=== PATIENT | female | born 1940 | race Caucasian/White ===

== ENCOUNTER → 2017-09-07 14:54 | Outpatient (CLI) | payer MEDICARE, OTHER, SELFPAY ==
--- NOTE | 2017-09-07 15:04 | XR_ITS ---
XR chest 2V HISTORY: Cough with shortness of breath ITS.REASON: BRONCHITIS ORDERING PHYSICIAN: Radha Billings PATIENT AGE: 77 years COMPARISON: 05/31/2016 FINDINGS: Unremarkable cardiovascular structures. Calcified nodes are present in the right hilum. There is mild blunting of the CP angle on the right. Minimal atelectatic changes are present in the left lung base. There is a nodular opacity overlying the left lower lobe likely related to nipple shadow. Other areas of costochondral markings noted. No acute bony anomalies. IMPRESSION: 1. Small right pleural effusion. 2. Mild atelectatic changes left lung base
== END ==
PROVIDERS: PCP Nurse Practitioner Family; Visit Provider Nurse Practitioner Family
DX: J40 Bronchitis, not specified as acute or chronic (principal)
CPT/HCPCS: 71046

== ENCOUNTER → 2019-04-18 09:09 | Outpatient (CLI) | payer MEDICARE, SELFPAY ==
--- NOTE | 2019-04-18 09:14 | MM_ITS ---
PROCEDURE: MM DIG SCREENING MAMM BI W/CAD Patient Age:79Y CLINICAL INDICATION: SCREENING 79-year-old. Previous right mastectomy as well as previous benign lumpectomy on left breast. No new complaints, no hormones T family history but paternal cousin breast cancer in her 80s COMPARISON: DIGMAMMS MAMMOGRAM SCREEN-ROUND KILN DRAWER N/C from 02/05/2010 DMSB DIG MAMM-SCREEN SPIKE from 03/05/2013 DMSUL DIG MAMM-SCREENING UNI-LT from 03/21/2014 DMSUL DIG MAMM-SCREENING UNI-LT from 04/14/2015 DMSUL DIG MAMM-SCREENING UNI-LT from 05/31/2016 TECHNIQUE: Standard CC and MLO images were obtained. R2 CAD reviewed. FINDINGS: Left mammogram: Moderately density residual breast tissue throughout central breast. Slight inhomogeneous character of this breast tissue in some regions. . However no discrete new findings of significant concern Standard CC view appears stable. No new findings Slightly more evident breast density features towards on the MLO view inferior left breast appears similar to studies dating back to 2012 Also again note small benign-appearing groupings calcifications with no significant change; these could be followed IMPRESSION: No new areas of significant concern. Overall stable mammogram Moderate heterogeneous breast density. . Appearance is similar with no significant appearing change when compared back to 2012 .However would recommend and encourage the left mammogram follow-up in 1 year. BI-RAD Category: 2 Benign Finding(s) FOLLOW-UP: 1YR 1 Year Follow-up (A letter has been sent to the patient regarding results of the study.) Dictated by: Eriberto Riggs MD 04/23/2019 15:06 Electronically signed by Eriberto Riggs MD in [place] 04/23/2019 15:06
== END ==
PROVIDERS: PCP Nurse Practitioner Family; Visit Provider Nurse Practitioner Family
DX: Z12.31 Encounter for screening mammogram for malignant neoplasm of breast (principal)
CPT/HCPCS: 77067

== ENCOUNTER → 2020-04-18 12:47 | Outpatient (CLI) | payer MEDICARE, SELFPAY ==
--- NOTE | 2020-04-18 12:54 | CA_ITS ---
APPROVED REPORT EXAM: Comprehensive 2D, Doppler, and color-flow Echocardiogram Insurance Claim Approver: Dot Olmos, RT(R) Ht: 5 ft 1 in Wt: 127lbs BSA: 1.56 BP: 144/93 mmHg Indications: MVR, known PFO,hx of breast cancer Echo Enhancing Agent Indication: Rule Out Septal Defect Agent(s) / Amount(s) Used: Agitated Saline cc 2D Dimensions LVOT 1.82 cm (M/F) 1.5-2.5 M-Mode Dimensions RVDd 2.28 cm (0.9-2.6) LVDd 3.91 cm (3.5-5.7) LVDs 2.66 cm (3.5-5.7) IVSd 0.69 cm (0.6-1.1) PWd 0.84 cm (0.6-1.1) EF (Teich) 60.80% FS 32.00% EDV (Teich) 66.30 mL ESV (Teich) 26.00 mL LV Diastology E/A Ratio 0.88 Mitral Valve MV A Velocity 80.00 (40-130 cm/s) Left Ventricle Left atrium is mildly enlarged, left ventricle is normal size, mild concentric left ventricular hypertrophy, visually estimated ejection fraction 55% with no regional wall motion abnormality, grade 1 diastolic dysfunction seen without tissue Doppler evidence of raise left atrial pressure. Right Ventricle Right atrium and right ventricle are normal size and contractility. Atria There is bulging of the interatrial septum towards the right atrium raising the concerns for presence of increased left atrial pressure, agitated saline contrast study fails to identify intracardiac shunt. Mitral Valve Mitral valve leaflets are minimally thickened, there is mild mitral regurgitation. Tricuspid Valve Tricuspid valve is grossly normal, there is mild tricuspid regurgitation, calculated right ventricular systolic pressure 39 mmHg, inferior vena cava is mildly dilated without significant inspiratory collapse. Pulmonic Valve Pulmonic valve is poorly visualized. Great Vessels Aortic root is normal size. Pericardium No significant pericardial effusion noted. Conclusion 1. Mildly enlarged left atrium, normal left ventricular size, mild concentric left ventricular hypertrophy, visually estimated ejection fraction 55% with no regional wall motion abnormality, grade 1 diastolic dysfunction seen without tissue Doppler evidence of raise left atrial pressure. 2. Mild mitral and tricuspid regurgitation, calculated right ventricular systolic pressure 39 mmHg. 3. There is bulging of the interatrial septum towards the right atrium raising the concerns for presence of raised left atrial pressure, agitated saline contrast reveals 25 intracardiac shunt. 4. No significant pericardial effusion noted. Electronically signed by : Flavio Branch, 04/21/2020 19:59:26
== END ==
PROVIDERS: PCP Nurse Practitioner Family; Visit Provider Internal Medicine Cardiovascular Disease
DX: I34.0 Nonrheumatic mitral (valve) insufficiency (principal)
CPT/HCPCS: 93306

== ENCOUNTER → 2020-05-02 10:16 | Outpatient (CLI) | payer MEDICARE, SELFPAY ==
--- NOTE | 2020-05-02 10:19 | MM_ITS ---
PROCEDURE: MM DIG SCREENING MAMM BI W/CAD Referring Doctor: Radha Billings Patient Age:80Y CLINICAL INDICATION: SCREENING right mastectomy with benign left lumpectomy per patient history sheet. No new complaints. No hormones. Family history: Paternal cousin with breast cancer in her 80s COMPARISON: MG DMSB DIG MAMM-SCREEN SPIKE from 03/05/2013 MG DMSUL DIG MAMM-SCREENING UNI-LT from 03/21/2014 MG DMSUL DIG MAMM-SCREENING UNI-LT from 04/14/2015 MG DMSUL DIG MAMM-SCREENING UNI-LT from 05/31/2016 MG MM DIG SCREENING MAMM BI W/CAD from 04/18/2019 TECHNIQUE: Standard CC and MLO images were obtained. R2 CAD reviewed. Bilateral digital breast tomosynthesis included. Additional axillary CC view left breast FINDINGS: Right breast is been surgically removed The only a left mammogram performed today. The small remaining left breast shows no new dominant or new suspicious mass. But minimal area of density at the inferior retroareolar region has remained stable since studies dating back to at least 1999 15 and even seen on 2013 exam.. Mole markers medial and lateral left breast again observed; also suggestion subtle mild distortion from previous biopsy left breast. Follow-up left mammogram 1 year recommended IMPRESSION: Stable left breast follow-up 1 year recommended BI-RAD Category: 2 Benign Finding(s) FOLLOW-UP: 1YR 1 Year Follow-up (A letter has been sent to the patient regarding results of the study.) Dictated by: Eriberto Riggs MD 05/02/2020 22:21 Eriberto Riggs MD in [place] 05/02/2020 22:21
== END ==
PROVIDERS: PCP Nurse Practitioner Family; Visit Provider Nurse Practitioner Family
DX: Z12.31 Encounter for screening mammogram for malignant neoplasm of breast (principal)
CPT/HCPCS: 77063; 77067

== ENCOUNTER → 2021-05-05 09:46 | Outpatient (CLI) | payer MEDICARE, SELFPAY ==
--- NOTE | 2021-05-05 09:50 | MM_ITS ---
PROCEDURE: MM DIG SC MAMM UNILAT LT CAD Digital Breast Tomosynthesis Included CLINICAL INDICATION: SCREENING, h/o rt breast cancer COMPARISON: MG DIGMAMMDX MAMMOGRAM DX-EXTENSION SPECIALIST N/C from 11/17/2006 MG DIGMAMMS MAMMOGRAM SCREEN-EXTENSION SPECIALIST N/C from 02/05/2010 MG DMSUL DIG MAMM-SCREENING UNI-LT from 03/21/2014 MG DMSUL DIG MAMM-SCREENING UNI-LT from 04/14/2015 MG DMSUL DIG MAMM-SCREENING UNI-LT from 05/31/2016 MG MM DIG SCREENING MAMM BI W/CAD from 04/18/2019 MG MM DIG SCREENING MAMM BI W/CAD from 05/02/2020 TECHNIQUE: Standard CC and MLO images and 3D Tomosynthesis was obtained. R2 CAD reviewed. FINDINGS: Status post right mastectomy. There are scattered areas of fibroglandular density The left nipple somewhat inverted. There is asymmetric density in the inferior aspect of the left breast which is somewhat more prominent compared to the previous exams possibly related overlying fibroglandular tissue. Spot compression view and left breast ultrasound suggested as well as straight mL view. No malignant appearing mass or malignant-appearing microcalcification. Benign-appearing calcifications are present. IMPRESSION: Nodular density inferior left breast. Additional images and left breast ultrasound suggested. BI-RAD Category: 0 Need Additional Imaging Evaluation FOLLOW-UP: IMM Immediate Follow-up Recommended (A letter has been sent to the patient regarding results of the study.) Dictated by: Miguel Angel Deal MD 05/08/2021 17:34 Miguel Angel Deal MD in [place] 05/08/2021 17:34
== END ==
PROVIDERS: PCP Nurse Practitioner Family; Visit Provider Nurse Practitioner Family
DX: Z12.31 Encounter for screening mammogram for malignant neoplasm of breast (principal)
CPT/HCPCS: 77063; 77067

== ENCOUNTER → 2021-05-21 12:54 | Outpatient (CLI) | payer MEDICARE, SELFPAY ==
--- NOTE | 2021-05-21 13:00 | MM_ITS ---
PROCEDURE: MM DIG MAMM DX UNILAT LT CAD Digital Breast Tomosynthesis Included Left breast ultrasound CLINICAL INDICATION: ABN MAMM OF LT BREAST COMPARISON: MG MM DIG SCREENING MAMM BI W/CAD from 04/18/2019 MG MM DIG SCREENING MAMM BI W/CAD from 05/02/2020 MG MM DIG SC MAMM UNILAT LT CAD from 05/05/2021 US US BREAST LT COMPLETE from 05/21/2021 TECHNIQUE: Spot-compression views performed of the left breast along with left breast ultrasound. FINDINGS: The asymmetric density in the inferior aspect of the left breast does not appear to compress out as fibroglandular tissue. No malignant appearing mass or malignant-appearing microcalcification. Left breast ultrasound 3 mm cyst at 5 o'clock, 5 mm cyst at 6 o'clock near the nipple. 3 mm cyst at 10 o'clock near the nipple. No suspicious nodules evident. Small nodes are present in the axilla. IMPRESSION: Benign findings. BI-RAD Category: 2 Benign Finding FOLLOW-UP: 1 YR 1 Year Follow-up (A letter has been sent to the patient regarding results of the study.) Dictated by: Miguel Angel Deal MD 05/28/2021 18:28 Miguel Angel Deal MD in [place] 05/28/2021 18:28
== END ==
PROVIDERS: PCP Nurse Practitioner Family; Visit Provider Nurse Practitioner Family
DX: R92.8 Other abnormal and inconclusive findings on diagnostic imaging of breast (principal)
CPT/HCPCS: 76641; 77061; 77065; G0279

== ENCOUNTER → 2022-08-02 10:03 | Outpatient (CLI) | payer MEDICARE, SELFPAY ==
--- NOTE | 2022-08-02 10:08 | MM_ITS ---
PROCEDURE INFORMATION: Exam: MG Left Screening 3D Mammography Exam date and time: 08/02/2022 10:11 AM Age: 82 years old Clinical indication: Screening. Small cystic changes demonstrated in the left breast on sonography from 05/28/2021. Personal history of right breast cancer, status post right mastectomy TECHNIQUE: Imaging protocol: Left Screening tomosynthesis and 2D mammography including computer-aided detection (CAD) when performed. COMPARISON: 1. MG MM DIG MAMM DX UNILAT LT CAD 05/21/2021 1:13 PM 2. MG MM DIG SC MAMM UNILAT LT CAD 05/05/2021 10:00 AM 3. MG MM DIG SCREENING MAMM BI W/CAD 05/02/2020 10:29 AM 4. MG MM DIG SCREENING MAMM BI W/CAD 04/18/2019 9:25 AM FINDINGS: MAMMOGRAPHY: Breast composition: There are scattered areas of fibroglandular density. Mass: No suspicious mass. Architectural distortion: None. Calcifications: No suspicious calcifications. Asymmetric density: None. Skin thickening: None. Axillary adenopathy: None. IMPRESSION: No mammographic evidence of malignancy. Annual screening is recommended unless otherwise clinically indicated. ASSESSMENT: BI-RADS Category 1: Negative
== END ==
PROVIDERS: PCP Nurse Practitioner Family; Visit Provider Nurse Practitioner Family
DX: Z12.31 Encounter for screening mammogram for malignant neoplasm of breast (principal)
CPT/HCPCS: 77063; 77067

== ENCOUNTER → 2023-04-07 10:38 | Outpatient (POV) | payer MEDICARE, SELFPAY | PROVIDERS: Visit Provider Specialist/Technologist | DX: Z00.00 Encounter for general adult medical examination without abnormal findings (principal) ==

== ENCOUNTER 2023-12-14 08:20 | Outpatient (POV) | payer MEDICARE, SELFPAY | END 2023-12-14 23:59 | disposition home or self-care (01) | LOC: SC 08:20 | PROVIDERS: Visit Provider Specialist/Technologist | DX: Z00.00 Encounter for general adult medical examination without abnormal findings (principal) ==

== ENCOUNTER 2024-08-28 08:18 | Outpatient (CLI) | payer MEDICARE, SELFPAY ==
--- NOTE | 2024-08-28 08:21 | MM_ITS ---
PROCEDURE INFORMATION: Exam: MG Left Screening 3D Mammography Exam date and time: 08/28/2024 8:35 AM Age: 84 years old Clinical indication: Screening mammogram . Right mastectomy for breast cancer TECHNIQUE: Imaging protocol: Left Screening tomosynthesis and 2D mammography including computer-aided detection (CAD) when performed. COMPARISON: 1. MG MM DIG SC MAMM UNILAT LT CAD 08/02/2022 10:11 AM 2. MG MM DIG MAMM DX UNILAT LT CAD 05/21/2021 1:13 PM 3. MG MM DIG SC MAMM UNILAT LT CAD 05/05/2021 10:00 AM 4. MG MM DIG SCREENING MAMM BI W/CAD 05/02/2020 10:29 AM FINDINGS: MAMMOGRAPHY: Breast composition: There are scattered areas of fibroglandular density. Mass: None. Architectural distortion: No new or suspicious architectural distortion. Calcifications: No new or suspicious calcifications are present Asymmetric density: No new or suspicious asymmetric density is present Skin thickening: None. Axillary adenopathy: None. IMPRESSION: No mammographic evidence of malignancy. Recommend annual screening mammography unless otherwise clinically indicated. ASSESSMENT: BI-RADS category 1: Negative.
== END 2024-08-28 23:59 | disposition home or self-care (01) ==
LOC: RAD 08:18
PROVIDERS: PCP Nurse Practitioner Family; Visit Provider Nurse Practitioner Family
DX: Z12.31 Encounter for screening mammogram for malignant neoplasm of breast (principal)
CPT/HCPCS: 77063; 77067

== ENCOUNTER 2025-05-07 08:41 | Outpatient (CLI) | payer MEDICARE, SELFPAY ==
--- OUTSIDE RECORDS SUMMARY | 2025-04-02 04:45 | XMS_ITS ---
Author Organization [facility] Address [facility] [address] [place] [id number] Care Team Providers Care Peanut Vendor Name Role Phone Nilson Daniels Primary Care Provider Cleo Billings [phone] REASON FOR VISIT allergy shot Medications Medication SIG (Take, Route, Frequency, Duration) Notes Start Date End Date Status Caltrate 600+D Plus Minerals 600-800 MG-UNIT 1 tab(s) orally once daily Active Triamterene-HCTZ 37.5-25 MG TAKE 1 TABLET BY MOUTH EVERY DAY Orally daily Active Metoprolol Succinate ER 25 MG 1 tablet Orally daily; Duration: 90 days Active Lisinopril 20 MG 1 tab(s) orally twice a day; Duration: 90 days Active Ezetimibe 10 MG TAKE 1 TABLET BY MOUTH EVERY DAY Orally Once a day; Duration: 90 days Active Aspirin 325 MG 1 tab(s) orally with food once a day Active MASTECTOMY BRA 1 BRA DIRECTED *Please review for potential replacement for e-prescription and drug interaction check* Active SILICONE BREAST PROSTHESES 1 PROSTHESIS DIRECTED C50.919 *Please review for potential replacement for e-prescription and drug interaction check* 07/03/2008 Active ALLERGY INJECTIONS DIRECTED MONTHLY *Please r cruzito for potential replacement for e-prescription and drug interaction check* Active Problems Problem Type SNOMED Code ICD Code Onset Dates Problem Status W/U Status Risk Notes Problem Allergic rhinitis (20811257) Allergic rhinitis, unspecified seasonality, unspecified trigger (J30.9) Active confirmed Encounters Encounter Location Date Provider Diagnosis [facility] [address] [place] [phone] 04/02/2025 Cleo Billings Allergic rhinitis, unspecified seasonality, unspecified trigger J30.9 and Allergic rhinitis J30.9 Assessments Encounter Date Diagnosis (ICD Code) Assessment Notes Treatment Notes Treatment Clinical Notes Section Notes 04/02/2025 Allergic rhinitis, unspecified seasonality, unspecified trigger (ICD-10 - J30.9) 04/02/2025 Allergic rhinitis (ICD-10 - J30.9) Plan Of Treatment No Information Medications Administered Medication Instructions Date of Administration Dosage Notes allergy 04/02/2025 0.15 mL Mix A RA allergy 04/02/2025 0.15 mL Mix B LA Progress Notes * BRIELLE SIBLEYOB:1939 (85 yo F)Acc No.[id number]:04/02/2025 Patient: BRIELLE FLETCHER Provider: ASHLEY Almendarez :1940 A ge:84 Y S ex:Female Date:04/02/2025 Address:[address] [place] [address] [id number] Pcp:Nilson Daniels Subjective: * Chief Complaints: * 1 . Allergy shot. * Medical History: * Medications: T aking MASTECTOMY BRA 1 BRA DIRECTED , Notes to Pharmacist: *Please review for potential replacement for e-prescription and drug interaction check*, Taking SILICONE BREAST PROSTHESES 1 PROSTHESIS DIRECTED , Notes to Pharmacist: C50.919 *Please review for potential replacement for e-prescription and drug interaction check*, Taking ALLERGY INJECTIONS DIRECTED MONTHLY , Notes to Pharmacist: *Please review for potential replacement for e-prescription and drug interaction check*, Taking Aspirin 325 MG Tablet Delayed Release 1 tab(s) orally with food once a day , Taking Caltrate 600+D Plus Minerals 600-800 MG-UNIT Tablet 1 tab(s) orally once daily , Taking Triamterene-HCTZ 37.5-25 MG Tablet TAKE 1 TABLET BY MOUTH EVERY DAY Orally daily , Taking Metoprolol Succinate ER 25 MG Tablet Extended Release 24 Hour 1 tablet Orally daily , Taking Lisinopril 20 MG Tablet 1 tab(s) orally twice a day , Taking Ezetimibe 10 MG Tablet TAKE 1 TABLET BY MOUTH EVERY DAY Orally Once a day , Medication List reviewed and reconciled with the patient Objective: * Vitals: Assessment: * Assessment: 1. A llergic rhinitis, unspecified seasonality, unspecified trigger - J30.9 (Primary) ? 2 . A llergic rhinitis - J30.9 Plan: * Treatment: * Therapeutic Injections: allergy : 0.15 mL (Route: Subcutaneous) given by Lea Garcia on subcutaneus (Allergic rhinitis, unspecified seasonality, unspecified trigger) allergy : 0.15 mL (Route: Subcutaneous) given by Lea Garcia on subcutaneus (Allergic rhinitis, unspecified seasonality, unspecified trigger) * Procedure Codes: 9 5117 IMMUNOTHERAPY INJECTIONS * Images: Billing Information: * Visit Code: * Procedure Codes: 40144 IMMUNOTHERAPY INJECTIONS. * Electronic signature of Betina Billings APRN on 05/07/2025 at 08:57 AM EDT Sign off status: Pending * Provider: ASHLEY Almendarez Date: 0 04/02/2025 Generated for Han pruitt/González/Octavio on: 1 08:57 AM EDT
--- OUTSIDE RECORDS SUMMARY | 2025-04-04 04:35 | XMS_ITS ---
Author Organization [facility] Address [address] [facility] [address] [place] [id number] Care Team Providers Care Roundhouse Firer/Fireman Name Role Phone Nilson Daniels Primary Care Provider Cleo Billings Unavailable [phone] REASON FOR VISIT Allgery shot Medications Medication SIG (Take, Route, Frequency, Duration) Notes Start Date End Date Status Lisinopril 20 MG 1 tab(s) orally twice a day; Duration: 90 days Active Metoprolol Succinate ER 25 MG 1 tablet Orally daily; Duration: 90 days Active Ezetimibe 10 MG TAKE 1 TABLET BY MOUTH EVERY DAY Orally Once a day; Duration: 90 days Active Triamterene-HCTZ 37.5-25 MG TAKE 1 TABLET BY MOUTH EVERY DAY Orally daily Active Caltrate 600+D Plus Minerals 600-800 MG-UNIT 1 tab(s) orally once daily Active SILICONE BREAST PROSTHESES 1 PROSTHESIS DIRECTED C50.919 *Please review for potential replacement for e-prescription and drug interaction check* 07/03/2008 Active MASTECTOMY BRA 1 BRA DIRECTED *Please review for potential replacement for e-prescription and drug interaction check* Active Aspirin 325 MG 1 tab(s) orally with food once a day Active ALLERGY INJECTIONS DIRECTED MONTHLY *Please r cruzito for potential replacement for e-prescription and drug interaction check* Active Encounters Encounter Location Date Provider Diagnosis [facility] [address] [place] [phone] 04/04/2025 Cleo Billings Allergic rhinitis J30.9 Assessments Encounter Date Diagnosis (ICD Code) Assessment Notes Treatment Notes Treatment Clinical Notes Section Notes 04/04/2025 Allergic rhinitis (ICD-10 - J30.9) Plan Of Treatment No Information Medications Administered Medication Instructions Date of Administration Dosage Notes allergy 04/04/2025 .20 mg extract B: LA allergy 04/04/2025 .20 mg extract a: RA Progress Notes * BRIELLE SIBLEYOB:1939 (85 yo F)Acc No.[id number]:04/04/2025 Patient: BRIELLE FLETCHER Provider: ASHLEY Almendarez :1940 A ge:84 Y S ex:Female Date:04/04/2025 Address:[address] [place], [place] [address], [id number] Pcp:Nilson Daniels Subjective: * Chief Complaints: * 1 . Allgery shot. * Medical History: * Medications: T [...] Vitals: Assessment: * Assessment: 1. A llergic rhinitis - J30.9 (Primary) Plan: * Treatment: * Therapeutic Injections: allergy : .20 mg (Route: Subcutaneous) given by Juli Villatoro , EPE on left deltoid (Allergic rhinitis) allergy : .20 mg (Route: Subcutaneous) given by Juli Villatoro , EPE on right deltoid (Allergic rhinitis) * Procedure Codes: 9 5117 IMMUNOTHERAPY INJECTIONS * Images: Billing Information: * Visit Code: * Procedure Codes: 84440 IMMUNOTHERAPY INJECTIONS. * Electronic signature of Betina Billings APRN on 05/07/2025 at 08:59 AM EDT Sign off status: Pending * Provider: ASHLEY Almendarez Date: 0 04/04/2025 Generated for Han pruitt/González/Octavio on: 1 08:59 AM EDT
--- OUTSIDE RECORDS SUMMARY | 2025-04-09 04:40 | XMS_ITS ---
Author Organization [facility] Address [address] [facility] [address] [place] [phone] Care Team Providers Care Sleeve Presser Operator Name Role Phone Nilson Daniels Primary Care Provider Cleo Billings Unavailable [phone] REASON FOR VISIT allergy shot Medications Medication SIG (Take, Route, Frequency, Duration) Notes Start Date End Date Status Triamterene-HCTZ 37.5-25 MG TAKE 1 TABLET BY MOUTH EVERY DAY Orally daily Active Caltrate 600+D Plus Minerals 600-800 MG-UNIT 1 tab(s) orally once daily Active Ezetimibe 10 MG TAKE 1 TABLET BY MOUTH EVERY DAY Orally Once a day; Duration: 90 days Active Lisinopril 20 MG 1 tab(s) orally twice a day; Duration: 90 days Active Metoprolol Succinate ER 25 MG 1 tablet Orally daily; Duration: 90 days Active SILICONE BREAST PROSTHESES 1 PROSTHESIS DIRECTED C50.919 *Please review for potential replacement for e-prescription and drug interaction check* 07/03/2008 Active MASTECTOMY BRA 1 BRA DIRECTED *Please review for potential replacement for e-prescription and drug interaction check* Active Aspirin 325 MG 1 tab(s) orally with food once a day Active ALLERGY INJECTIONS DIRECTED MONTHLY *Please r marianaiew for potential replacement for e-prescription and drug interaction check* Active Encounters Encounter Location Date Provider Diagnosis [facility] [address] [place] [phone] 04/09/2025 Cleo Billings Allergic rhinitis J30.9 Assessments Encounter Date Diagnosis (ICD Code) Assessment Notes Treatment Notes Treatment Clinical Notes Section Notes 04/09/2025 Allergic rhinitis (ICD-10 - J30.9) Plan Of Treatment No Information Medications Administered Medication Instructions Date of Administration Dosage Notes allergy 04/09/2025 0.25 mL extract b: ; l eft allergy 04/09/2025 0.25 mL extract a: rig ht Progress Notes * BRIELLE SIBLEYOB:1939 (85 yo F)Acc No.[id number]:04/09/2025 Patient: BRIELLE FLETCHER Provider: ASHLEY Almendarez :1940 A ge:84 Y S ex:Female Date:04/09/2025 Address:[address] [place], [place] [address], [id number] Pcp:Nilson Daniels Subjective: * Chief Complaints: * [...] * Treatment: * Therapeutic Injections: allergy : 0.25 mL (Route: Subcutaneous) given by Juli Villatoro , EPE on left deltoid (Pending) (Allergic rhinitis) allergy : 0.25 mL (Route: Subcutaneous) given by Juli Villatoro , EPE on right deltoid (Allergic rhinitis) * Procedure Codes: 9 5117 IMMUNOTHERAPY INJECTIONS * Images: Billing Information: * Visit Code: * Procedure Codes: 64254 IMMUNOTHERAPY INJECTIONS. * Electronic signature of Betina Billings APRN on 05/07/2025 at 08:59 AM EDT Sign off status: Pending * Provider: ASHLEY Almendarez Date: 0 04/09/2025 Generated for Han pruitt/González/Octavio on: 1 08:59 AM EDT
--- OUTSIDE RECORDS SUMMARY | 2025-04-11 04:35 | XMS_ITS ---
Author Organization Ronal Address 1210 [facility] [address] [place] [id number] Care Team Providers Care Electrical Plumbing Supervisor Name Role Phone Nilson Daniels Primary Care Provider Cleo Billings Unavailable [phone] REASON FOR VISIT allergy shot Medications Medication SIG (Take, Route, Frequency, Duration) Notes Start Date End Date Status Triamterene-HCTZ 37.5-25 MG TAKE 1 TABLET BY MOUTH EVERY DAY Orally daily Active Caltrate 600+D Plus Minerals 600-800 MG-UNIT 1 tab(s) orally once daily Active Lisinopril 20 MG 1 tab(s) orally twice a day; Duration: 90 days Active Metoprolol Succinate ER 25 MG 1 tablet Orally daily; Duration: 90 days Active Ezetimibe 10 MG TAKE 1 TABLET BY MOUTH EVERY DAY Orally Once a day; Duration: 90 days Active SILICONE BREAST PROSTHESES 1 PROSTHESIS DIRECTED C50.919 *Please review for potential replacement for e-prescription and drug interaction check* 07/03/2008 Active MASTECTOMY BRA 1 BRA DIRECTED *Please review for potential replacement for e-prescription and drug interaction check* Active Aspirin 325 MG 1 tab(s) orally with food once a day Active ALLERGY INJECTIONS DIRECTED MONTHLY *Please r aamirw for potential replacement for e-prescription and drug interaction check* Active Encounters Encounter Location Date Provider Diagnosis [place] [address] [place] [address] [place] [phone] 04/11/2025 Cleo Billings Allergic rhinitis, unspecified seasonality, unspecified trigger J30.9 Assessments Encounter Date Diagnosis (ICD Code) Assessment Notes Treatment Notes Treatment Clinical Notes Section Notes 04/11/2025 Allergic rhinitis, unspecified seasonality, unspecified trigger (ICD-10 - J30.9) Plan Of Treatment No Information Medications Administered Medication Instructions Date of Administration Dosage Notes allergy 04/11/2025 0.30 Mix A: RT Arm allergy 04/11/2025 0.30 mL Mix B: LT Arm Progress Notes * BRIELLE SIBLEYOB:1939 (85 yo F)Acc No.[id number]:04/11/2025 Patient: BRIELLE FLETCHER Provider: ASHLEY Almendarez :1940 A ge:84 Y S ex:Female Date:04/11/2025 Address:[address] [place] [address] [place], [id number] Pcp:Nilson Daniels Subjective: * Chief Complaints: * [...] seasonality, unspecified trigger - J30.9 (Primary) ? Plan: * Treatment: * Therapeutic Injections: allergy : 0.30 (Route: Subcutaneous) given by Estephania Carlos on subcutaneus (Allergic rhinitis, unspecified seasonality, unspecified trigger) allergy : 0.30 mL (Route: Subcutaneous) given by Estephania Carlos on subcutaneus (Allergic rhinitis, unspecified seasonality, unspecified trigger) * Procedure Codes: 9 5117 IMMUNOTHERAPY INJECTIONS * Images: Billing Information: * Visit Code: * Procedure Codes: 53221 IMMUNOTHERAPY INJECTIONS. * Electronic signature of Betina Billings APRN on 05/07/2025 at 08:57 AM EDT Sign off status: Pending * Provider: ASHLEY Almendarez Date: 0 04/11/2025 Generated for Han pruitt/González/Octavio on: 1 08:57 AM EDT
--- OUTSIDE RECORDS SUMMARY | 2025-04-16 04:25 | XMS_ITS ---
Author Organization Ronal Address 1210 [facility] [address] [place] [phone] Care Team Providers Care Restaurant Kitchen Manager Name Role Phone Nilson Daniels Primary Care Provider Cleo Billings Unavailable [phone] REASON FOR VISIT allergy shot Medications Medication SIG (Take, Route, Frequency, Duration) Notes Start Date End Date Status Aspirin 325 MG 1 tab(s) orally with food once a day Active Caltrate 600+D Plus Minerals 600-800 MG-UNIT 1 tab(s) orally once daily Active SILICONE BREAST PROSTHESES 1 PROSTHESIS DIRECTED C50.919 *Please review for potential replacement for e-prescription and drug interaction check* 07/03/2008 Active ALLERGY INJECTIONS DIRECTED MONTHLY *Please r eview for potential replacement for e-prescription and drug interaction check* Active MASTECTOMY BRA 1 BRA DIRECTED *Please review for potential replacement for e-prescription and drug interaction check* Active Lisinopril 20 MG 1 tab(s) orally twice a day; Duration: 90 days Active Triamterene-HCTZ 37.5-25 MG TAKE 1 TABLET BY MOUTH EVERY DAY Orally daily Active Metoprolol Succinate ER 25 MG 1 tablet Orally daily; Duration: 90 days Active Ezetimibe 10 MG TAKE 1 TABLET BY MOUTH EVERY DAY Orally Once a day; Duration: 90 days Active Encounters Encounter Location Date Provider Diagnosis Ronal 1210 [facility] [address] [place] [phone] 04/16/2025 Cleo Billings Allergic rhinitis, unspecified seasonality, unspecified trigger J30.9 Assessments Encounter Date Diagnosis (ICD Code) Assessment Notes Treatment Notes Treatment Clinical Notes Section Notes 04/16/2025 Allergic rhinitis, unspecified seasonality, unspecified trigger (ICD-10 - J30.9) Plan Of Treatment No Information Medications Administered Medication Instructions Date of Administration Dosage Notes allergy 04/16/2025 0.35 mL Mix A: RT Arm allergy 04/16/2025 0.35 mL Mix B: LT Arm Progress Notes * BRIELLE SIBLEYOB:1939 (85 yo F)Acc No.[id number]:04/16/2025 Patient: BRIELLE FLETCHER Provider: ASHLEY Almendarez :1940 A ge:85 Y S ex:Female Date:04/16/2025 Address:[address] [place] [address] [place], [id number] Pcp:Nilson Daniels Subjective: * Chief Complaints: * [...] * Treatment: * Therapeutic Injections: allergy : 0.35 mL (Route: Subcutaneous) given by Estephania Gonzalez on subcutaneus (Allergic rhinitis, unspecified seasonality, unspecified trigger) allergy : 0.35 mL (Route: Subcutaneous) given by Estephania Gonzalez on subcutaneus (Allergic rhinitis, unspecified seasonality, unspecified trigger) * Procedure Codes: 9 5117 IMMUNOTHERAPY INJECTIONS, Units: 2.00 * Images: Billing Information: * Visit Code: * Procedure Codes: 12503 IMMUNOTHERAPY INJECTIONS. Units: 2.00. * Electronic signature of Betina Billings APRN on 05/07/2025 at 08:58 AM EDT Sign off status: Pending * Provider: ASHLEY Almendarez Date: 0 04/16/2025 Generated for Han pruitt/González/Octavio on: 1 08:58 AM EDT
--- OUTSIDE RECORDS SUMMARY | 2025-04-18 04:30 | XMS_ITS ---
Author Organization Ronal Address [facility]10 [facility] [address] [place] [phone] Care Team Providers Care Admitting Manager Name Role Phone Nilson Daniels Primary Care Provider [phone] Cleo Billings [phone] REASON FOR VISIT allergy shot Medications Medication SIG (Take, Route, Frequency, Duration) Notes Start Date End Date Status Caltrate 600+D Plus Minerals 600-800 MG-UNIT 1 tab(s) orally once daily Active Aspirin 325 MG 1 tab(s) orally with food once a day Active ALLERGY INJECTIONS DIRECTED MONTHLY *Please r eview for potential replacement for e-prescription and drug interaction check* Active SILICONE BREAST PROSTHESES 1 PROSTHESIS DIRECTED C50.826 *Please review for potential replacement for e-prescription and drug interaction check* 07/03/2008 Active Triamterene-HCTZ 37.5-25 MG TAKE 1 TABLET BY MOUTH EVERY DAY Orally daily Active MASTECTOMY BRA 1 BRA DIRECTED *Please review for potential replacement for e-prescription and drug interaction check* Active Ezetimibe 10 MG TAKE 1 TABLET BY MOUTH EVERY DAY Orally Once a day; Duration: 90 days Active Lisinopril 20 MG 1 tab(s) orally twice a day; Duration: 90 days Active Metoprolol Succinate ER 25 MG 1 tablet Orally daily; Duration: 90 days Active Problems Problem Type SNOMED Code ICD Code Onset Dates Problem Status W/U Status Risk Notes Problem Seasonal allergic rhinitis (195549488) Seasonal allergic rhinitis, unspecified trigger (J30.2) Active confirmed Encounters Encounter Location Date Provider Diagnosis [facility] [address] [place] [phone] 04/18/2025 Cleo Billings Seasonal allergic rhinitis, unspecified trigger J30.2 Assessments Encounter Date Diagnosis (ICD Code) Assessment Notes Treatment Notes Treatment Clinical Notes Section Notes 04/18/2025 Seasonal allergic rhinitis, unspecified trigger (ICD-10 - J30.2) Plan Of Treatment No Information Medications Administered Medication Instructions Date of Administration Dosage Notes allergy 04/18/2025 0.40 mL allergy 04/18/2025 0.40 mL Progress Notes * BRIELLE SIBLEYOB:1939 (85 yo F)Acc No.[id number]:04/18/2025 Patient: BRIELLE FLETCHER Provider: ASHLEY Almendarez :1940 A ge:85 Y S ex:Female Date:04/18/2025 Address:[address] [place], [place] [address], [id number] Pcp:Nilson Daniels Subjective: * Chief Complaints: * [...] Objective: * Vitals: Assessment: * Assessment: 1. S easonal allergic rhinitis, unspecified trigger - J30.2 (Primary) Plan: * Treatment: * Therapeutic Injections: allergy : 0.40 mL (Route: Subcutaneous) given by MARYA Munoz on subcutaneus (Seasonal allergic rhinitis, unspecified trigger) allergy : 0.40 mL (Route: Subcutaneous) given by MARYA Munoz on subcutaneus (Seasonal allergic rhinitis, unspecified trigger) * Procedure Codes: 9 5117 IMMUNOTHERAPY INJECTIONS * Images: Billing Information: * Visit Code: * Procedure Codes: 21819 IMMUNOTHERAPY INJECTIONS. * Electronic signature of Betina Billings APRN on 05/07/2025 at 08:58 AM EDT Sign off status: Pending * Provider: ASHLEY Almendarez Date: 1 Generated for Han pruitt/González/Calebitting on: 08:58 AM EDT
--- OUTSIDE RECORDS SUMMARY | 2025-04-23 05:15 | XMS_ITS ---
Author Organization Nadeem Address 1210 [facility] [address] [place] [phone] Care Team Providers Care Planning Associate Name Role Phone Nilson Daniels Primary Care Provider [phone] Cleo Billings [phone] Allergies Allergen (clinical drug ingredient) Drug/Non Drug Allergy documented on EMR Reaction Allergy Type Onset Date Status ofloxacin FLOXINS (uncoded) Unknown Allergy Ac tive Iodine Unknown Drug Allergy Active nitrofurantoin, macrocrystals / nitrofurantoin, monohydrate Macrobid rash Drug Allergy Active norfloxacin Norfloxacin Unknown Drug Allergy Act matty REASON FOR VISIT allergy shot Vital Signs Height 62 in 04/23/2025 Encounters Encounter Location Date Provider Diagnosis N[place]em 1210 [facility] [address] [place] [phone] 04/23/2025 Cleo Billings Allergic rhinitis J30.9 Assessments Encounter Date Diagnosis (ICD Code) Assessment Notes Treatment Notes Treatment Clinical Notes Section Notes 04/23/2025 Allergic rhinitis (ICD-10 - J30.9) Plan Of Treatment No Information Medications Administered Medication Instructions Date of Administration Dosage Notes allergy 04/23/2025 .45 mL mix b: LA allergy 04/23/2025 .45 mL mix a: RA Progress Notes * BRIELLE SIBLEYOB:1939 (85 yo F)Acc No.[id number]:04/23/2025 Patient: BRIELLE FLETCHER Provider: ASHLEY Almendarez :1940 A ge:85 Y S ex:Female Date:04/23/2025 Address:[id number] Pcp:Nilson Daniels Subjective: * Chief Complaints: * 1 . Allergy shot. * Medical History: H [place], Dysrythmia, HLP, Breast Cancer with Right Mastectomy, Arthritis, MVP was told she does not have, Elevated thyroid binding globulin (needs T7 and TSH for screening), PFO, SUBPONTINE EXOSTOSIS ( SUBPONTIC HYPEROSTOSIS), Kidney stone, Environmental allergies and is followed by monotype machinist ; receives monthly injections. * Allergies: I odine, Norfloxacin, FLOXINS, Macrobid: rash. Objective: * Vitals: W t: Not Taken - No Medical Need, Temp: Not Taken - No Medical Need, BP: Not Taken - No Medical Need, HR: Not Taken - No Medical Need, Nurse: Not Taken - No Medical Need, Ht: 62. Assessment: * Assessment: 1. A llergic rhinitis - J30.9 (Primary) Plan: * Treatment: * Therapeutic Injections: allergy : .45 mL (Route: Subcutaneous) given by JUSTIN ModiE on subcutaneus (Allergic rhinitis) allergy : .45 mL (Route: Subcutaneous) given by JUSTIN ModiE on subcutaneus (Allergic rhinitis) * Procedure Codes: 9 5117 IMMUNOTHERAPY INJECTIONS * Images: Billing Information: * Visit Code: * Procedure Codes: 15996 IMMUNOTHERAPY INJECTIONS. * Electronic signature of Betina Billings APRN on 05/07/2025 at 08:58 AM EDT Sign off status: Pending * Provider: ASHLEY Almendarez Date: Generated for Han pruitt/González/Calebitting on: 08:58 AM EDT
--- OUTSIDE RECORDS SUMMARY | 2025-04-26 04:30 | XMS_ITS ---
Author Organization Ronal Address 1210 [facility] [address] [place] [phone] Care Team Providers Care Drug Abuse Program Coordinator Name Role Phone Nilson Daniels Primary Care Provider [phone] Cleo Billings [phone] REASON FOR VISIT allergy injections only Medications Medication SIG (Take, Route, Frequency, Duration) Notes Start Date End Date Status MASTECTOMY BRA 1 BRA DIRECTED *Please review for potential replacement for e-prescription and drug interaction check* Active Ezetimibe 10 MG TAKE 1 TABLET BY MOUTH EVERY DAY Orally Once a day; Duration: 90 days Active SILICONE BREAST PROSTHESES 1 PROSTHESIS DIRECTED C50.919 *Please review for potential replacement for e-prescription and drug interaction check* 07/03/2008 Active Lisinopril 20 MG 1 tab(s) orally twice a day; Duration: 90 days Active Metoprolol Succinate ER 25 MG 1 tablet Orally daily; Duration: 90 days Active Caltrate 600+D Plus Minerals 600-800 MG-UNIT 1 tab(s) orally once daily Active Aspirin 325 MG 1 tab(s) orally with food once a day Active ALLERGY INJECTIONS DIRECTED MONTHLY *Please r cruzito for potential replacement for e-prescription and drug interaction check* Active Triamterene-HCTZ 37.5-25 MG TAKE 1 TABLET BY MOUTH EVERY DAY Orally daily Active Encounters Encounter Location Date Provider Diagnosis [facility] [address] [place] [phone] 04/26/2025 Cleo Billings Allergic rhinitis, unspecified seasonality, unspecified trigger J30.9 Assessments Encounter Date Diagnosis (ICD Code) Assessment Notes Treatment Notes Treatment Clinical Notes Section Notes 04/26/2025 Allergic rhinitis, unspecified seasonality, unspecified trigger (ICD-10 - J30.9) Plan Of Treatment No Information Medications Administered Medication Instructions Date of Administration Dosage Notes allergy 04/26/2025 0.50 mL Mix A: RT Arm allergy 04/26/2025 0.50 mL Mix B: LT Arm Progress Notes * BRIELLE SIBLEYOB:1939 (85 yo F)Acc No.[id number]:04/26/2025 Patient: BRIELLE FLETCHER Provider: ASHLEY Almendarez :1940 A ge:85 Y S ex:Female Date:04/26/2025 Address:[address] [place] [address] [place], [id number] Pcp:Nilson Daniels Subjective: * Chief Complaints: * 1 . Allergy injections only. * Medical History: * Medications: T aking [...] * Treatment: * Therapeutic Injections: allergy : 0.50 mL (Route: Subcutaneous) given by Estephania Gonzalez on subcutaneus (Allergic rhinitis, unspecified seasonality, unspecified trigger) allergy : 0.50 mL (Route: Subcutaneous) given by Estephania Gonzalez on subcutaneus (Allergic rhinitis, unspecified seasonality, unspecified trigger) * Procedure Codes: 9 5117 IMMUNOTHERAPY INJECTIONS * Images: Billing Information: * Visit Code: * Procedure Codes: 45494 IMMUNOTHERAPY INJECTIONS. * Electronic signature of Betina Billings APRN on 05/07/2025 at 08:56 AM EDT Sign off status: Pending * Provider: ASHLEY Almendarez Date: 1 Generated for Han pruitt/González/Octavio on: 08:56 AM EDT
--- OUTSIDE RECORDS SUMMARY | 2025-04-30 05:15 | XMS_ITS ---
Author Organization Ronal Address 1210 [facility] [address] [place] [phone] Care Team Providers Care Buffing And Polishing Wheel Repairer Name Role Phone Nilson Daniels Primary Care Provider Cleo Billings [phone] REASON FOR VISIT ALLERGY INJECTION Encounters Encounter Location Date Provider Diagnosis Ronal [facility] [address] [place] [phone] 04/30/2025 Cleo Billings Seasonal allergic rhinitis, unspecified trigger J30.2 Assessments Encounter Date Diagnosis (ICD Code) Assessment Notes Treatment Notes Treatment Clinical Notes Section Notes 04/30/2025 Seasonal allergic rhinitis, unspecified trigger (ICD-10 - J30.2) Plan Of Treatment No Information Medications Administered Medication Instructions Date of Administration Dosage Notes allergy 04/30/2025 0.05 mL mix B LA allergy 04/30/2025 0.05 mL Mix A RA Progress Notes * BRIELLE SIBLEYOB:1939 (85 yo F)Acc No.[id number]:04/30/2025 Patient: BRIELLE FLETCHER Provider: ASHLEY Almendarez :1940 A ge:85 Y S ex:Female Date:04/30/2025 Address:[id number] Pcp:Nilson Daniels Subjective: * Chief Complaints: * 1 . ALLERGY INJECTION. * Medical History: Objective: * Vitals: Assessment: * Assessment: 1. S easonal allergic rhinitis, unspecified trigger - J30.2 (Primary) Plan: * Treatment: * Therapeutic Injections: allergy : 0.05 mL (Route: Subcutaneous) given by Lea Garcia on subcutaneus (Seasonal allergic rhinitis, unspecified trigger) allergy : 0.05 mL (Route: Subcutaneous) given by Lea Garcia on subcutaneus (Seasonal allergic rhinitis, unspecified trigger) * Procedure Codes: 9 5117 IMMUNOTHERAPY INJECTIONS * Images: Billing Information: * Visit Code: * Procedure Codes: 39457 IMMUNOTHERAPY INJECTIONS. * Electronic signature of Betina Billings APRN on 05/07/2025 at 08:59 AM EDT Sign off status: Pending * Provider: ASHLEY Almendarez Date: Generated for Han pruitt/González/Octavio on: 08:59 AM EDT
--- OUTSIDE RECORDS SUMMARY | 2025-05-03 04:40 | XMS_ITS ---
Author Organization Ronal Address 1210 [facility] [address] [place] [phone] Care Team Providers Care Humid System Operator Name Role Phone Nilson Daniels Primary Care Provider Cleo Billings [phone] REASON FOR VISIT allergy shot Medications Medication SIG (Take, Route, Frequency, Duration) Notes Start Date End Date Status Ezetimibe 10 MG TAKE 1 TABLET BY [...] Problem Status W/U Status Risk Notes Problem Information temporarily unavailable Non-seasonal allergic rhinitis, unspecified trigger (J30.89) Active confirmed Encounters Encounter Location Date Provider Diagnosis [facility] [address] [place] [phone] 05/03/2025 Cleo Billings Non-seasonal allergi c rhinitis, unspecified trigger J30.89 Assessments Encounter Date Diagnosis (ICD Code) Assessment Notes Treatment Notes Treatment Clinical Notes Section Notes 05/03/2025 Non-seasonal allergic rhinitis, unspecified trigger (ICD-10 - J30.89) Plan Of Treatment No Information Medications Administered Medication Instructions Date of Administration Dosage Notes allergy 05/03/2025 0.10 mL allergy 05/03/2025 0.10 mL Progress Notes * BRIELLE SIBLEYOB:1939 (85 yo F)Acc No.[id number]:05/03/2025 Patient: BRIELLE FLETCHER Provider: ASHLEY Almendarez :1940 A ge:85 Y S ex:Female Date:05/03/2025 [facility] [place] [id number] Pcp:Nilson Daniels Subjective: * Chief Complaints: * [...] Objective: * Vitals: Assessment: * Assessment: 1. N on-seasonal allergic rhinitis, unspecified trigger - J30.89 (Primary) Plan: * Treatment: * Therapeutic Injections: allergy : 0.10 mL (Route: Subcutaneous) given by Rose Marie Blanco on subcutaneus (Non-seasonal allergic rhinitis, unspecified trigger) allergy : 0.10 mL (Route: Subcutaneous) given by Rose Marie Blanco on subcutaneus (Non-seasonal allergic rhinitis, unspecified trigger) * Procedure Codes: 9 5115 IMMUNOTHERAPY, ONE INJECTION * Images: Billing Information: * Visit Code: * Procedure Codes: 95010 IMMUNOTHERAPY, ONE INJECTION. * Electronic signature of Betina Billings APRN on 05/07/2025 at 08:57 AM EDT Sign off status: Pending * Provider: ASHLEY Almendarez Date: 1 Generated for Han pruitt/González/Octavio on: 08:57 AM EDT
--- NOTE | 2025-05-07 08:46 | XR_ITS ---
FINAL REPORT CLINICAL HISTORY: SCREENING COMPARISON: None FINDINGS: Using L1-4, the bone mineral density of the spine is 0.857 g/cm2, corresponding to T-score of -1.7. Using the left hip, the bone mineral density of the femoral neck is 0.650 g/cm2, corresponding to a T-score of -2.4. Using the right hip, the bone mineral density of the femoral neck is 0.620 g/cm2, corresponding to a T-score of -2.1. NOTE: T-score: Standard deviation compared with peak bone mass of young adult mean. *Following the recommendations of the International Society of Bone densitometry, classification of hip BMD is based on the lower of two T-scores; total hip or femoral neck. IMPRESSION: The bone mineral density of the lumbar spine and bilateral hips corresponds with osteopenia. Reviewed, Interpreted and Dictated by Ijeoma Olvera MD Transcribed by Viv Bolaños Authenticated and . [facility]
--- OUTSIDE RECORDS SUMMARY | 2025-05-07 08:57 | XMS_ITS | Encounter Summary ---
Author Organization [employer] ([place], [place], [place], [place]) Address [address] [place] [address] Care Team Providers Care Certified Massage Therapist Name Role Phone Unavailable Primary Care Provider Unavailabl e Encounter Details Date Type Department Care Team (Late st Contact Info) Description 08/23/2019 Transcribed Document [facility] [place] [address] ProviderAspen MD [address] [place] [address] Social History Tobacco Use Types Packs/Day Years Used Date Smoking Tobacco: Never Assessed Comments Unknown Sex and Gender Information Value Date Recorded Sex Assigned at Female 01/12/2022 8:37 PM CDT Legal Sex Female 8:37 PM CDT Gender Identity Female 01/12/2022 8:37 PM CDT Sexual Orientation Not on file documented as of this encounter Miscellaneous Notes * Cerner Conversion Note - Aspen ProviderMD - 08/23/2019 9:08 AM PRINTING MACHINE OPERATOR T[employer]ULES [facility] Main OR Preop Summary Primary Physician: VIRA OSEGUERA MD-URO Finalized Date/Time: 08/23/19 12:15:11 Pt. Name: [place]NADRA [place]Nikolas [place] /Sex: 1940 Female Med Rec #: [id number] Physician: VIRA OSEGUERA MD-URO Financial #: [id number] Pt. Type: O Room/Bed: Admit/Disch: 08/23/19 06:44:00 - Institution: [facility] PreOp Case Times Entry 1 In Preop 08/23/19 06:00:00 Ready for Holding n/a Room Patient Ready for 08/23/19 06:40:00 Surgery Patient Out of Preop 08/23/19 08:35:00 Patient Out of n/a Holding Room Last Modified By: WANG JIMENEZ 08/23/19 12:15:08 [facility] PreOp Case Times Audit 08/23/19 12:15:08 Hide And Skin Colerer: [place] Modifier: [email or web address] <+> 1 Patient Out of Preop Finalized By: WANG JIMENEZ Document Signatures Signed By: WANG JIMENEZ 08/23/19 12:15 documented in this encounter Plan of Treatment Not on file documented as of this encounter Visit Diagnoses Not on filedocumented in this encounter
--- OUTSIDE RECORDS SUMMARY | 2025-05-07 08:57 | XMS_ITS | Patient Health Record ---
[facility] Organization [facility] Address [address] [facility] [address] [place] [id number] Care Team Providers Care Production Clerk Name Role Phone Nilson Daniels Primary Care Provider Cleo Billings Unavailable [phone] Kenia Rolon Unavailable [phone] Allergies Allergen (clinical drug ingredient) Drug/Non Drug Allergy documented on EMR Reaction Allergy Type Onset Date Status ofloxacin FLOXINS (uncoded) Unknown Allergy Ac tive Iodine Unknown Drug Allergy Active nitrofurantoin, macrocrystals / nitrofurantoin, monohydrate Macrobid rash Drug Allergy Active norfloxacin Norfloxacin Unknown Drug Allergy Act matty Results Component Value Reference Range Notes Mammogram Reviewed date:08/30/2024 10:43:48 AM Interpretation:Negative, annual f/u Performing Lab: Notes/Report: Negative, annual f/u result Negative, annual f/u P-TSH Reviewed date:06/27/2024 12:39:52 PM Interpretation:Normal Performing Lab: Notes/Report: Test performed by [facility] [address] [place], [place] [address] [place] , [address], [place] [address] Raymundo Pederson MD, Apiarist CLIA: [id number] TSH 1.50 0.43-5.25 mU/L P-Lipid Panel Reviewed date:06/27/2024 12:40:24 PM Interpretation:LDL 120 Performing Lab: Notes/Report: Test performed by [facility] [address] [place], [place] [address] [address], [address], [place] [address] Raymundo Pederson MD, Apiarist CLIA: [id number] Cholesterol 187 <200 mg/dL Triglycerides 106 <150 mg/dL HDL Cholesterol 46 >39 mg/dL Cholesterol / HDL Ratio 4.07 0.00-4.44 Ratio Non-HDL Cholesterol 141 <130 mg/dL LDL Cholesterol (Calculation) 120 <130 mg/dL LDL Cholesterol Levels* Less than 100 mg/dL Optimal 100 to 129 mg/dL Near Optimal/ Above Optimal 130 to 159 mg/dL Borderline High 160 to 189 mg/dL High 190 mg/dL and above Very High * Categories as recommended by the 2004 ATPIII guidelines LDL/HDL Ratio 2.6 <3.3 Ratio ____ LDL Cholesterol Patient History ____ Test Date: 11/29/2023 LDL Results: 155 Units: mg/dL % Change: - ---- Test Date: 06/26/2024 LDL Results: 120 Units: mg/dL % Change: -22% ____ P-Comprehensive Metabolic Pa aby (CMP) Reviewed date:06/27/2024 12:41:10 PM Interpretation: Performing Lab: Notes/Report: Test performed by [facility], [address] , [address], [place] [address] Raymundo Pederson MD, Apiarist CLIA: [id number] Sodium 137 135-145 mmol/L Potassium 3.8 3.5-5.3 mmol/L Chloride 100 97-108 mmol/L CO2 25 22-32 mmol/L Glucose 80 65-99 mg/dL BUN 15 8-23 mg/dL Creatinine 0.67 0.50-1.00 mg/dL Calcium 9.6 8.6-10.4 mg/dL eGFR by Creatinine 87 >59 mL/min/1.73m2 Protein 6.8 6.0-8.3 g/dL Albumin 4.4 3.5-5.3 g/dL Alkaline Phosphatase 46 35-121 IU/L ALT (SGPT) 16 <5-47 IU/L AST (SGOT) 18 <5-40 IU/L Bilirubin, Total 0.7 <0.2-1.2 mg/dL A/G Ratio 1.8 1.1-2.5 CBC Venipuncture (in house) Reviewed date:03/27/2025 04:31:23 PM Interpretation: Performing Lab: Notes/Report: wbc 5.5 3.5 - 10 lymph 23.3% 15 - 50 mid 5.5% 2 - 15 gran 71.2% 35 - 80 rbc 4.82 3.5 - 5.5 hgb 14.6 11.5 - 16.5 hct 42.5 35 - 55 mcv 88.2 75 - 100 mch 30.2 25 - 35 mchc 34.2 31 - 38 platlet 207 100 - 400 P-Comprehensive Metabolic Pa aby (CMP) Reviewed date:03/27/2025 04:30:56 PM Interpretation: Performing Lab: Notes/Report: Test performed by [facility], [address] , [address], [place] [address] Raymundo Pederson MD, Apiarist CLIA: [id number] Sodium 138 135-145 mmol/L Potassium 4.1 3.5-5.3 mmol/L Chloride 98 97-108 mmol/L CO2 29 20-32 mmol/L Glucose 79 65-99 mg/dL BUN 17 8-23 mg/dL Creatinine 0.74 0.50-1.00 mg/dL Calcium 9.9 8.6-10.4 mg/dL eGFR by Creatinine 80 >59 mL/min/1.73m2 Protein 7.2 6.0-8.3 g/dL Albumin 4.7 3.5-5.3 g/dL Alkaline Phosphatase 49 35-121 IU/L ALT (SGPT) 13 <5-47 IU/L AST (SGOT) 19 <5-40 IU/L Bilirubin, Total 0.6 <0.2-1.2 mg/dL A/G Ratio 1.9 1.1-2.5 P-Lipid Panel Reviewed date:03/27/2025 04:30:30 PM Interpretation:LDL 128; HDL 51; TG 105 Performing Lab: Notes/Report: Test performed by [facility], [facility] [address] [place] [address] , [address], [place] [address] Raymundo Pederson MD, Apiarist CLIA: [id number] Cholesterol 200 <200 mg/dL Triglycerides 105 <150 mg/dL HDL Cholesterol 51 >39 mg/dL Cholesterol / HDL Ratio 3.92 0.00-4.44 Ratio Non-HDL Cholesterol 149 <130 mg/dL LDL Cholesterol (Calculation) 128 <130 mg/dL LDL Cholesterol Levels* Less than 100 mg/dL Optimal 100 to 129 mg/dL Near Optimal/ Above Optimal 130 to 159 mg/dL Borderline High 160 to 189 mg/dL High 190 mg/dL and above Very High * Categories as recommended by the 2004 ATPIII guidelines LDL/HDL Ratio 2.5 <3.3 Ratio ____ LDL Cholesterol Patient History ____ Test Date: 11/29/2023 LDL Results: 155 Units: mg/dL % Change: - ---- Test Date: 06/26/2024 LDL Results: 120 Units: mg/dL % Change: -22% ---- Test Date: 03/26/2025 LDL Results: 128 Units: mg/dL % Change: +6% ____ Medications Medication SIG (Take, Route, Frequency, Duration) [...] for e-prescription and drug interaction check* Active Immunizations Vaccine Route Administration Date Status Commmita ward xFluzone (6mos and older)-trivalent IM Intramuscular 03/24/2012 Administered xFlu shot-36 months and older IM Intramuscular 05/20/2005 Administered Typhoid vaccine IM Intramuscular 01/27/2006 Administered Typhoid vaccine IM Intramuscular 06/11/2008 Administered Typhoid vaccine IM Intramuscular 07/22/2010 Administered Typhoid vaccine IM Intramuscular 07/22/2012 Administered Tetanus Tdap-Adacel (over 7yrs) IM Intramuscular 05/17/2007 Administered Tetanus Tdap-Adacel (over 7yrs) IM Intramuscular 03/14/2017 Administered Shingrix Unknown 11/16/2017 Administered Shingrix IM Intramuscular 12/08/2018 Administered Prevnar (PCV13) Unknown 07/17/2015 Administered PNEUMOVAX 23 VACCINE IM Intramuscular 09/11/2018 Administe red Hepatitis A (adult) Unknown 02/15/2018 Administered H1N1 flu vaccine IM Intramuscular 06/06/2009 Administered Fluzone Quad-Medicare (6months&older) Unknown 04/13/2023 Administered Fluzone High Dose (65yr and older) Unknown 04/13/2016 Administered Fluzone High Dose (65yr and older) Unknown 05/12/2017 Administered Fluzone High Dose (65yr and older) IM Intramuscular 02/29/2020 Administered COVID 19 Moderna Unknown 08/27/2020 Administered COVID 19 Moderna Unknown 09/24/2020 Administered COVID 19 Moderna Unknown 05/20/2021 Administered COVID 19 Moderna Unknown 05/20/2021 Administered COVID 19 Moderna Unknown 05/20/2021 Administered COVID 19 Moderna Unknown 11/27/2021 Administered Problems Problem Type SNOMED Code ICD Code Onset Dates Problem Status W/U Status Risk Notes Problem Hypertension (79864288) HTN (hypertension) (I10) Active confirmed Problem Essential hypertension (99600768) Essential hypertension (I10) Active confirmed Problem Osteopenia (299219504) Osteopenia (M85.80) Active confirmed Problem Environmental allergy (910556108) Environmental allergies (Z91.048) Active confirmed Problem Personal history of primary malignant neoplasm of breast (971914774) History of breast cancer (Z85.3) Active confirmed Problem Hearing loss (79090064) Hearing loss (H91.90) Active confirmed Problem Mixed hyperlipidemia (724668820) Mixed hyperlipidemia (E78.2) Active confirmed Problem Cystocele (266246606) Cystocele, unspecified (N81.10) Active confirmed Problem Atrial septal defect (79879293) Atrial septal defect (Q21.1) Active confirmed Problem Allergic rhinitis (31022169) Allergic rhinitis (J30.9) Active confirmed Problem Osteoporosis (93147537) Osteoporosis (M81.0) Active confirmed Problem History of right mastectomy (523676375) History of right mastectomy (Z90.11) Active confirmed Problem Seasonal allergic rhinitis (565129475) Seasonal allergic rhinitis, unspecified trigger (J30.2) Active confirmed Problem Allergic rhinitis (50034224) Non-seasonal allergic rhinitis, unspecified trigger (J30.89) Active confirmed Problem Allergic rhinitis (45730388) Allergic rhinitis, unspecified seasonality, unspecified trigger (J30.9) Active confirmed Vital Signs Heart Rate 61 /min 03/26/2025 Blood pressure diastolic 70 mm Hg 03/26/2025 Height 62 in 04/23/2025 Blood pressure systolic 120 mm Hg 03/26/2025 Weight 114.4 lbs 03/26/2025 BMI 20.92 kg/m2 03/26/2025 Encounters Encounter Location Date Provider Diagnosis [place] [address] [id number] 06/26/2024 Cleo Billings Essential hypertensi on I10 ; History of breast cancer Z85.3 ; Mixed hyperlipidemia E78.2 ; Thyroid disorder screen Z13.29 ; Skin lesion L98.9 and Breast cancer screening Z12.39 [facility] [address] [id number] 12/17/2024 Cleo Billings Adult general medica l examination Z00.00 ; Osteoporosis M81.0 ; Mixed hyperlipidemia E78.2 ; History of breast cancer Z85.3 ; Atrial septal defect Q21.1 ; HTN (hypertension) I10 ; Environmental allergies Z91.048 ; BMI 21.0-21.9, adult Z68.21 and History of right mastectomy Z90.11 [facility] [address] [id number] 01/22/2025 Cleo Billings Allergic rhinitis 47 7.9 [place] [address] [id number] 02/21/2025 Cleo Billings Allergic rhinitis J3 0.9 [facility] [address] [place], [place] [id number] 02/22/2025 Kenia Rolon Visit for suture removal Z48.02 and BMI 21.0-21.9, adult Z68.21 [facility] [address] [place], [place] [id number] 03/26/2025 Cleo Billings Essential hypertensi on I10 ; History of breast cancer Z85.3 ; Mixed hyperlipidemia E78.2 and Osteopenia M85.80 [facility] [address] [place], [place] [id number] 03/27/2025 Cleo Billings Allergic rhinitis J3 0.9 [facility] [address] [place], [place] [id number] 04/02/2025 Cleo Billings Allergic rhinitis, unspecified seasonality, unspecified trigger J30.9 and Allergic rhinitis J30.9 [facility] [address] [place], [place] [id number] 04/04/2025 Cleo Billings Allergic rhinitis J3 0.9 [facility] [address] [place] [id number] 04/09/2025 Cleo Billings Allergic rhinitis J3 0.9 [facility] [address] [facility] [address] [place], [place] [id number] 04/11/2025 Cleo Billings Allergic rhinitis, unspecified seasonality, unspecified trigger J30.9 [facility] [address] [place], [place] [id number] 04/16/2025 Cleo Billings Allergic rhinitis, unspecified seasonality, unspecified trigger J30.9 [facility] [address] [place], [place] [id number] 04/18/2025 Cleo Billings Seasonal allergic rhinitis, unspecified trigger J30.2 [facility] [address] [place], [place] [id number] 04/23/2025 Cleo Billings Allergic rhinitis J3 0.9 [facility] [address] [place] [id number] 04/26/2025 Cleo Billings Allergic rhinitis, unspecified seasonality, unspecified trigger J30.9 [facility] [address] [place], [place] [id number] 04/30/2025 Cleo Billings Seasonal allergic rhinitis, unspecified trigger J30.2 [facility] [address] [place] [id number] 05/03/2025 Cleo Billings Non-seasonal allergi c rhinitis, unspecified trigger J30.89 [facility] [address] [place] [id number] 12/24/2024 Cleo Billings Assessments Encounter Date Diagnosis (ICD Code) Assessment Notes Treatment Notes Treatment Clinical Notes Section Notes 06/26/2024 Essential hypertension (ICD-10 - I10) 06/26/2024 History of breast cancer (ICD-10 - Z85.3) 12/17/2024 Osteoporosis (ICD-10 - M81.0) 12/17/2024 Adult general medical examination (ICD-10 - Z00.00) Patient instructed to return to office Annually for Annual Wellness Visits to include annual screenings of Pain assessment, Functional Ability assessment, Cognitive Ability assessment, Fall Risk assessment, Depression screening and Bladder control screening. 01/22/2025 Allergic rhinitis (ICD-10 - 477.9) 03/26/2025 Essential hypertension (ICD-10 - I10) 04/02/2025 Allergic rhinitis, unspecified seasonality, unspecified trigger (ICD-10 - J30.9) 04/04/2025 Allergic rhinitis (ICD-10 - J30.9) 04/09/2025 Allergic rhinitis (ICD-10 - J30.9) 04/11/2025 Allergic rhinitis, unspecified seasonality, unspecified trigger (ICD-10 - J30.9) 04/16/2025 Allergic rhinitis, unspecified seasonality, unspecified trigger (ICD-10 - J30.9) 04/18/2025 Seasonal allergic rhinitis, unspecified trigger (ICD-10 - J30.2) 04/23/2025 Allergic rhinitis (ICD-10 - J30.9) 04/26/2025 Allergic rhinitis, unspecified seasonality, unspecified trigger (ICD-10 - J30.9) 04/30/2025 Seasonal allergic rhinitis, unspecified trigger (ICD-10 - J30.2) 05/03/2025 Non-seasonal allergic rhinitis, unspecified trigger (ICD-10 - J30.89) 02/22/2025 Visit for suture removal (ICD-10 - Z48.02) Sutures removed. 02/22/2025 BMI 21.0-21.9, adult (ICD-10 - Z68.21) 02/21/2025 Allergic rhinitis (ICD-10 - J30.9) 03/26/2025 History of breast cancer (ICD-10 - Z85.3) 03/27/2025 Allergic rhinitis (ICD-10 - J30.9) 04/02/2025 Allergic rhinitis (ICD-10 - J30.9) 03/26/2025 Mixed hyperlipidemia (ICD-10 - E78.2) 12/17/2024 Mixed hyperlipidemia (ICD-10 - E78.2) 06/26/2024 Mixed hyperlipidemia (ICD-10 - E78.2) 06/26/2024 Thyroid disorder screen (ICD-10 - Z13.29) 03/26/2025 Osteopenia (ICD-10 - M85.80) 12/17/2024 History of breast cancer (ICD-10 - Z85.3) 12/17/2024 Atrial septal defect (ICD-10 - Q21.1) 06/26/2024 Skin lesion (ICD-10 - L98.9) 12/17/2024 HTN (hypertension) (ICD-10 - I10) 06/26/2024 Breast cancer screening (ICD-10 - Z12.39) 12/17/2024 Environmental allergies (ICD-10 - Z91.048) 12/17/2024 BMI 21.0-21.9, adult (ICD-10 - Z68.21) 12/17/2024 History of right mastectomy (ICD-10 - Z90.11) 06/26/2024 Other declines delgado density study at this time; will schedule later; has had her flu shot Plan Of Treatment Pending Test Test Name Order Date Bone density 12/17/2024 Bone density 03/26/2025 Mammogram 11/29/2023 CP-CMP 08/11/2020 CP-LIPID PANEL 08/11/2020 CP-THYROID PROFILE with TSH 08/11/2020 CP-Thyroid Antibodies 08/11/2020 Insurance Providers Payer Name Payer Address Payer Phone Subscriber Number Group Number Insured Name Patient Relationship to Insured Coverage Start Date Coverage End Date [employer] (MEDICAR E) [place] [address] [address] [place] [address] [phone] [id number] BRIELLE SIBLEY Self - patient is the insured Medications Administered Medication Instructions Date of Administration Dosage Notes allergy 01/22/2025 0.5 mL allergy 01/22/2025 0.5 mL allergy 02/21/2025 0.5 mL Mix #1 RA allergy 02/21/2025 0.5 mL Mix #2 LA allergy 03/27/2025 .10 mL Extract A: RA allergy 03/27/2025 .10 mL Extract B: LA allergy 04/02/2025 0.15 mL Mix A RA allergy 04/02/2025 0.15 mL Mix B LA allergy 04/04/2025 .20 mg extract B: LA allergy 04/04/2025 .20 mg extract a: RA allergy 04/09/2025 0.25 mL extract b: ; l eft allergy 04/09/2025 0.25 mL extract a: rig ht allergy 04/11/2025 0.30 Mix A: RT Arm allergy 04/11/2025 0.30 mL Mix B: LT Arm allergy 04/16/2025 0.35 mL Mix A: RT Arm allergy 04/16/2025 0.35 mL Mix B: LT Arm allergy 04/18/2025 0.40 mL allergy 04/18/2025 0.40 mL allergy 04/23/2025 .45 mL mix b: LA allergy 04/23/2025 .45 mL mix a: RA allergy 04/26/2025 0.50 mL Mix A: RT Arm allergy 04/26/2025 0.50 mL Mix B: LT Arm allergy 04/30/2025 0.05 mL mix B LA allergy 04/30/2025 0.05 mL Mix A RA allergy 05/03/2025 0.10 mL allergy 05/03/2025 0.10 mL Dexamethasone 03/05/2014 1 mL Medical (General) History Medical History History ICD Code HTN Dysrythmia HLP Breast Cancer with Right Mastectomy Arthritis MVP was told she does not have Elevated thyroid binding globulin (needs T7 and TSH for screening) PFO SUBPONTINE EXOSTOSIS ( SUBPONTIC HYPEROS TOSIS) kidney stone Environmental allergies and is followed by causticiser ; receives monthly injections Surgical History Surgery Date(Month/Year) Hysterectomy right mastectomy bladder tuck ( sacral colpopexy robiotic ) /Dr. Garza 08/23/20192019 Mohs procedure on forehead for BCC BCC excision left elbow 12/2024
--- OUTSIDE RECORDS SUMMARY | 2025-05-07 08:57 | XMS_ITS | Encounter Summary ---
Author Organization [employer] ([place], [place], [place], [place]) Address [address] [place] [address] Care Team Providers Care Cotton Jammer Name Role Phone Unavailable Primary Care Provider Unavailabl e Encounter Details Date Type Department Care Team (Late st Contact Info) Description 08/16/2019 Transcribed Document [facility] [place] [facility] [address] [place] [address] ProviderAspen MD [address], [place] [id number] Social History Tobacco Use Types Packs/Day Years Used Date Smoking Tobacco: Never Assessed Comments Unknown Sex and Gender Information Value Date Recorded Sex Assigned at Female 01/12/2022 8:37 PM CDT Legal Sex Female 8:37 PM CDT Gender Identity Female 01/12/2022 8:37 PM CDT Sexual Orientation Not on file documented as of this encounter Miscellaneous Notes * [employer]ner Conversion Note - Historical ProviderMD - 08/16/2019 10:00 AM METAL REFINER RX Interventions Entered On: 08/16/2019 10:03 EST Performed On: 08/16/2019 10:03 EST by UNIQUE BELL RPh Clinical Interventions Clarify Drug Order : Yes UNIQUE BELL RPh - 08/16/2019 10:03 EST Clarify Drug Order Clarify Drug Order, Order : awaiting allergies Clarify Drug Order, Value : 0 Dollar Clarify Drug Order, Time : 10 Minute(s) UNIQUE BELL RPh - 08/16/2019 10:03 EST Electronically signed by [facility] Conversion Bow Rehairer Cerner at 11/01/2022 7:32 PM CDT documented in this encounter Plan of Treatment Not on file documented as of this encounter Visit Diagnoses Not on filedocumented in this encounter
--- OUTSIDE RECORDS SUMMARY | 2025-05-07 08:57 | XMS_ITS | Encounter Summary ---
Author Organization [employer] ([place], [place], [place], [place]) Address [address] [place] [address] Care Team Providers Care Cook Specialty Foreign Food Name Role Phone Unavailable Primary Care Provider Unavailabl e Encounter Details Date Type Department Care Team (Late st Contact Info) Description 08/16/2019 Transcribed Document [facility] [place] [facility] [place] [address] ProviderAspen MD [address] [place] [address] Social History Tobacco Use Types [...] Conversion Note - Historical ProviderMD - 08/16/2019 10:36 AM DUTY MANAGER PAT Adult Entered On: 08/16/2019 11:15 EST Performed On: 08/16/2019 10:36 EST by CHAO QUICK RN Vital Measurements Temperature Source : Temporal artery scanning Temperature Mode : Fahrenheit Temperature, Fahrenheit : 98.4 Deg F Clinical Temperature, C : 36.9 Deg C Pulse Method : Pulse Oximetry Peripheral Pulse Rate : 68 bpm Respiratory Rate : 16 Breaths/Min Blood Pressure Location : Arm, right upper Blood Pressure Source : Non-Invasive BP Device Blood Pressure Position : Sitting Systolic Blood Pressure : 158 mmHg (HI) Diastolic Blood Pressure : 85 mmHg Oxygen Saturation : 100 % Oxygen Therapy Mode : Room air CHAO QUICK RN - 08/16/2019 10:36 EST Height and Weight, Clinical Dosing Height Source : Measured Height Entry Format : [place] Height, Feet : 5 ft(Converted to: 152 cm, 60 Inch) Height, Inches : 2 Inch(Converted to: 0 ft 2 Inch, 5.08 cm) Clinical Height : 157.48 cm Weight Source : Standing scale Weight Entry Format : [place] Clinical Dosing Weight : 57.93 kg Weight, Pounds : 127 lb Weight, Ounces : 7 oz Body Surface Area (BSA) : 1.58 m2 Body Mass Index : 23.4 kg/m2 [place] Body Weight : 50 kg CHAO QUICK RN - 08/16/2019 10:36 EST Health Histories Smoking Status : Never (less than 100 in lifetime; none in last 30 days) Smokeless Tobacco Status : Never CHAO QUICK RN - 08/16/2019 10:36 EST Social History (As Of: 08/16/2019 11:15:17 EST) Tobacco: Never (less than 100 in lifetime) Smoking Status. Never Smokeless Tobacco Status. None Smokeless Tobacco Use History. (Last Updated: 08/16/2019 10:39:13 EST by CHAO QUICK RN) Alcohol: Alcohol Use History Yes. Alcohol Use Frequency Socially. (Last Updated: 08/16/2019 10:39:24 EST by CHAO QUICK RN) Substance Abuse: Drug Use Hx: No. Use in Last 12 Months: No. (Last Updated: 08/16/2019 10:39:31 EST by CHAO QUICK RN) Home/Environment: Lives with Spouse. Living situation: Home/Independent. Home equipment: Walker/Cane. (Last Updated: 08/16/2019 10:40:25 EST by CHAO QUICK RN) Employment/School: Retired (Last Updated: 08/16/2019 10:40:31 EST by CHAO QUICK RN) Infectious Disease History Physical contact outside [place] in the last 30 days : No Infectious Disease History : Chicken pox/Shingles, Measles Active Surveillance Screen Assessment : Patient does not meet any of above criteria Active Surveillance Screen Negative : Yes Tuberculosis Symptoms : None CHAO QUICK RN - 08/16/2019 10:36 EST Anesthesia/Transfusion History Family History of Anesthesia Reaction : Prior transfusion reaction Type of Transfusion Reaction : Hives Blood Transfusion Acceptable to Patient : Yes Transfusion History : No prior anesthesia Family History of Anesthesia Reaction : Other: mother's heart stopped during hip replacement CHAO QUICK RN - 08/16/2019 10:36 EST Functional Assessment Functional ADL Evaluation Index EBN Bathing : Independent (2) Dressing : Independent (2) Toileting : Independent (2) Transferring Bed or Chair : Independent (2) Continence : Independent (2) Feeding : Independent (2) CHAO QUICK RN - 08/16/2019 10:36 EST ADL Index Score : 12 CHAO QUICK RN - 08/16/2019 10:36 EST Advance Directive Patient has Advance Directive *Q : No, patient refuses Advance Directive information CHAO QUICK RN - 08/16/2019 10:36 EST Spiritual/Cultural Needs Any Spiritual/Cultural Needs or Requests : Yes Spiritual/Cultural Needs Comment : surgery on Aug 23 in at 0600 am. Spiritual/Cultural/Concerns Affect Care Comment : States if any complications with surgery requests anoiting of the sick by a tobacco warehouse agent Spiritual/Cult Concerns/Desires/Needs : Prayer CHAO QUICK RN - 08/16/2019 10:36 EST [place] Suicide Severity Rating Scale (C-SSRS) CSSRS Past Month Wish to be : No CSSRS Past Month Suicidal Thoughts : No CSSRS Lifetime Suicide Behavior : No Suicide Severity Rating Score : 0 Suicide Severity Rating : No Additional Care Required at this time CHAO QUICK RN - 08/16/2019 10:36 EST Psychosocial History Currently in Unsafe Situation : No CHAO QUICK RN - 08/16/2019 10:36 EST Education Topics, Periop Preadmission Perioperative Education Grid Arrival Time/Place : Verbalizes understanding CHG Preoperative Bathing/Cloths : Verbalizes understanding IV's : Verbalizes understanding NPO Status/Directions : Verbalizes understanding Pain Management : Verbalizes understanding Preprocedure Preparations : Verbalizes understanding Preprocedure Tests/Labs : Verbalizes understanding Remove Body Piercings : Verbalizes understanding Take/Hold Medications Pre-Procedure : Verbalizes understanding CHAO QUICK RN - 08/16/2019 10:36 EST General Info Arrived From : Home Mode of Arrival on Unit : Ambulatory Support Person/Patient Installers Mechanical : Yes Support Person/Pt Rep Name : Steve Kevin - spouse Jairo Kevin - son Support Person/Pt Rep Contact Information : [phone] Want Family/Rep/Phys Notified of Admit : No Emergency Contact #1 : Steve Kevin Emergency Contact #1 Emergency Contact #1 Relationship : spouse Emergency Contact #2 : Dr Mejia Kevin Emergency Contact #2 Emergency Contact #2 Relationship : son Information Obtained From : Patient Primary Language : Kittitian Preferred Communication Mode : Verbal Communication Barrier : None Objects to Sharing Info w Family : No Clinical Trials Participant *Q : None CTP, None *Q : Yes CHAO QUICK RN - 08/16/2019 10:36 EST Marco Scale Marco Sensory Perception : No impairment Marco Moisture : Rarely moist Marco Activity : Walks frequently Marco Mobility : No limitation Marco Nutrition : Adequate Marco Friction and Shear : No apparent problem Marco Score : 22 CHAO QUICK RN - 08/16/2019 10:36 EST Sleep Apnea Risk Assmt Hx of Obstructive Sleep Apnea Diagnosis : No Snore Loudly : No Tired, Fatigued, or Sleepy During Day : No Observed Stopping Breathing During Sleep : No Have/Are Being Treated for Hypertension : Yes BMI Greater Than 35 kg/m2 : No Age over 50 Years Old : Yes Neck Circumference Greater Than 40 cm : No Gender Male : No STOP-BANG Sleep Apnea Risk Level Score : 2 CHAO QUICK RN - 08/16/2019 10:36 EST Electronically signed by [facility] Conversion Design And Sales Consultant Cerner at 11/01/2022 7:20 PM CDT documented in this encounter Plan of Treatment Not on file documented as of this encounter Visit Diagnoses Not on filedocumented in this encounter
--- OUTSIDE RECORDS SUMMARY | 2025-05-07 08:58 | XMS_ITS | Encounter Summary ---
Author Organization [employer] ([place], [place], [place], [place]) Address [address] [place] [address] Care Team Providers Care Desk Officer Name Role Phone Unavailable Primary Care Provider Unavailabl e Encounter Details Date Type Department Care Team (Late st Contact Info) Description 08/24/2019 Transcribed Document [facility] [place] Family Medicine [address] [place] [address] ProviderAspen MD [address] [place] [address] Social History Tobacco Use Types [...] Cerner Conversion Note - Aspen ProviderMD - 08/24/2019 5:25 PM BRANCH OFFICE ADMINISTRATOR Initial Discharge Planning Entered On: 08/24/2019 17:26 EST Performed On: 08/24/2019 17:25 EST by JAY MARTINEZ RN-Instrument Adjuster Initial Assessment I Previously Documented Living Environment : No qualifying data available. Living Situation : Home Patient Lives With : Spouse Is the Patient a Caregiver at Home? : No Emergency Contact #1 : Steve Kevin Emergency Contact #1 Emergency Contact #1 Relationship : spouse Emergency Contact #2 : Dr Mejia Kevin Emergency Contact #2 Emergency Contact #2 Relationship : son Enter Doctors Name : billy qiu Does Patient have PCP Listed? : Yes Legal Guardian : No Is Guardianship Needed : No JAY MARTINEZ RN-Instrument Adjuster - 08/24/2019 17:25 EST Initial Assessment II Sensory and Motor Deficits : None Current Home Treatments and Equipment : None JAY MARTINEZ RN-Instrument Adjuster - 08/24/2019 17:25 EST Discharge Needs I Anticipated Discharge Date : 08/25/2019 EST Anticipated Discharge To, CM : Home with family care Current Home Treatment/Equipment : Current Home Treatment/Equipment No qualifying data available. Post Acute/Home Treatments : None Documentation Status Complete : Yes JAY MARTINEZ RN-Instrument Adjuster - 08/24/2019 17:25 EST Discharge Needs II Professional Skilled Services : Professional Skilled Services No qualifying data available. Needs Assistance with Transportation : No JAY MARTINEZ RN-Instrument Adjuster - 08/24/2019 17:25 EST Narrative Note Narrative Note : POD1 s/p robotic assisted laparoscopic abdominal sacrocolpopexy. No CM needs identified by pt and cm. she will dc home with her and will transport. Son is an MD. JAY MARTINEZ RN-Instrument Adjuster - 08/24/2019 17:25 EST documented in this encounter Plan of Treatment Not on file documented as of this encounter Visit Diagnoses Not on filedocumented in this encounter
--- OUTSIDE RECORDS SUMMARY | 2025-05-07 08:58 | XMS_ITS | Clinical Summary ---
Author Organization [facility] Address [address] [place] [id number] Care Team Providers Care Mixer Operator Helper Hot Metal Name Role Phone Cleo Billings APRN Primary Care Provider [phone] Allergies Active Allergy Reactions Criticality Noted Date Comments Rosuvastatin Calcium Other (See Comments) 04/10/2020 Back pain Ofloxacin 12/14/2016 Nitrofurantoin Macrocrystal Rash Low 04/10/2020 Pravastatin Other (See Comments) 04/10/2020 Rashes and hives Medications lisinopril (PRINIVIL,ZESTR IL) 20 MG tablet Take 1 tablet by mouth 2 (Two) Times a Day. 0 7 Active metoprolol succinate XL (TOPROL-XL) 25 MG 24 hr tablet take 1 tablet by mouth once daily 0 7 Active triamterene-hyd rochlorothiazid e (MAXZIDE-25) 37.5-25 MG per tablet Take 0.5 tablets by mouth Daily. 0 7 Active aspirin 325 MG tablet Take 1 tablet by mouth Daily. Active ALLERGY SERUM INJECTION Inject under the skin into the appropriate area as directed Every 30 (Thirty) Days. Active vitamin B-12 (CYANOCOBALAMIN ) 1000 MCG tablet Take 1 tablet by mouth Daily. Active ezetimibe (ZETIA) 10 MG tablet 5 Active Active Problems Problem Noted Date Diagnosed Date VHD (valvular heart disease) 12/14/2016 Overview (12/14/2016): a. April 2012; moderate MR, mild to moderate TR; RVSP 45. Intraatrial septal aneurysm with [id number] shunting. b. September 2014, carotid artery Duplex: Bilateral internal carotid arteries without plaque or stenosis. Bilateral common and external carotid arteries without stenosis. Bilateral vertebral arteries are patent with antegrade flow. Tortuous external carotid arteries bilaterally, both ICA and ECAs. Palpitations 12/14/2016 Dyslipidemia 12/14/2016 Overview (12/14/2016): 1. Dyslipidemia, on non-statin therapy with elevated LFTs with pravastatin. Sciatica 12/14/2016 Family History Medical History Relation Name Comments Cancer Father Cancer Mother Stroke Mother Relation Name Status Comments Father Mother Social History Tobacco Use Types Packs/Day Years Used Date Smoking Tobacco: Never Smokeless Tobacco: Never Tobacco Cessation:Counseling Given: Not Answered Alcohol Use Standard Drinks/Week Comments Yes 0 (1 standard drink = 0.6 oz pur e alcohol) rare Comments Unknown Sex and Gender Information Value Date Recorded Sex Assigned at Not on file Legal Sex Female 11:46 AM EDT Gender Identity Not on file Sexual Orientation Not on file Last Filed Vital Signs Vital Sign Reading Time Taken Comments Blood Pressure 138/82 10/11/2024 9:27 AM EDT Pulse 72 10/11/2024 9:27 AM EDT Temperature 36.6 C (97.8 F) 04/10/2020 10:02 AM EDT Respiratory Rate - - Oxygen Saturation 98% 10/11/2024 9:27 AM EDT Inhaled Oxygen Concentration - - Weight 54 kg (119 lb) 10/11/2024 9:27 AM EDT Height 154.9 cm (5' 1 ) 10/11/2024 9:27 AM EDT Body Mass Index 22.48 10/11/2024 9:27 AM EDT Plan of Treatment Upcoming Encounters Date Type Department Care Team (Late st Contact Info) Description 01/09/2026 1:45 PM EDT Office Visit [facility] [address] [place] [address] Gino Buenrostro MD [address] [facility] [address] [place] [address] Health Maintenance Due Date Last Done Comments DXA SCAN 1942 LIPID PANEL 1942 COLOGUARD 1987 COLON CANCER SCREENING 5 YEA R SIGMOIDOSCOPY 1987 COLONOSCOPY 1987 [address]AL CANCER SCREENING 1987 CT COLONOGRAPHY 1987 FECAL OCCULT BLOOD TEST 1987 FIT Testing (1 year) 1987 ZOSTER VACCINE (1 of 2) 1992 ANNUAL WELLNESS VISIT 12/14/2016 RSV Vaccine - Adults (1 - 1- dose 75+ series) 2017 Pneumococcal Vaccine 50+ (2 of 2 - PCV) 09/11/2019 09/11/2018 INFLUENZA VACCINE 02/15/2025 04/17/2024, 04/13/2023 COVID-19 Vaccine (6 - Modern a risk ) 03/18/2025 03/16/2024, 04/13/2023, 03/31/2022, Additional history exists TDAP/TD VACCINES (2 - Td or Tdap) 03/14/2027 017 Insurance [place] [id number] [facility] MEDICARE ADVANTAGE PPO Care Teams Mixer Operator Helper Hot Metal Relationship Specialty Start Date End Date Cleo Billings APRN [address] [place] [id number] PCP - General Family Medicine 04/10/20
--- OUTSIDE RECORDS SUMMARY | 2025-05-07 08:58 | XMS_ITS | Encounter Summary ---
Author Organization [employer] ([place], [place], [place], [place]) Address [address] [place] [address] Care Team Providers Care Unit Coordinator Name Role Phone Unavailable Primary Care Provider Unavailabl e Encounter Details Date Type Department Care Team (Late st Contact Info) Description 08/23/2019 Transcribed Document [facility] [place] [facility] [place] [address] ProviderAspen MD [address] [place] [address] Social History Tobacco Use Types [...] Conversion Note - Aspen ProviderMD - 08/23/2019 11:29 AM MOTORIZED SQUAD COMMANDING OFFICER Pain Assessment Entered On: 08/25/2019 5:40 EST Performed On: 08/24/2019 7:08 EST by Mikki Ferraro RN Intervention Information: acetaminophen-HYDROcodone Performed by Mikki Ferraro RN on 08/24/2019 06:08:00 EST acetaminophen-HYDROcodone,1Tab Oral,Pain (Moderate 4-6) Pain Assessment Pain Assessment : Follow-up assessment Pain Scale Goal : 5 Pain Scale Used : 0-10 Scale Pain Intervention, Drug : Medicated Pain Improved by Intervention : Yes Mikki Ferraro RN - 08/25/2019 5:40 EST Pain Scale Intensity : 3 Mikki Ferraro RN - 08/25/2019 5:40 EST Image 4 - Images currently included in the form version of this document have not been included in the text rendition version of the form. documented in this encounter Plan of Treatment Not on file documented as of this encounter Visit Diagnoses Not on filedocumented in this encounter
--- OUTSIDE RECORDS SUMMARY | 2025-05-07 08:58 | XMS_ITS | Encounter Summary ---
Author Organization [employer] ([place], [place], [place], [place]) Address [address] [place] [address] Care Team Providers Care Cleaning Handyman Name Role Phone Unavailable Primary Care Provider Unavailabl e Encounter Details Date Type Department Care Team (Late st Contact Info) Description 08/23/2019 Transcribed Document [facility] [place] Medicine [address] [place] [address] ProviderAspen MD [address] [place], [place] [id number] Social History Tobacco Use Types Packs/Day Years [...] Conversion Note - Aspen ProviderMD - 08/23/2019 1:00 AM DOCTOR OF NAPRAPATHY Spiritual Care Assessment Entered On: 08/23/2019 9:20 EST Performed On: 08/23/2019 7:03 EST by RODNEY DICKENS General Information Initial Visit : Yes Referred by : Patient Referral Reason Comment : Pre-surgery visit Ministry Provided to : Patient, Family/Significant other Judaism Preference : Quaker, Kin RODNEY DICKENS - 08/23/2019 9:19 EST Spiritual Assessment Spiritual Assessment Comment/Summary Points : Pre-surgery visit and prayer with patient and . Patient expressed normal anxiety. Spirital Assessment Comment/Summary Report : SPIRITUAL ASSESSMENT COMMENT/SUMMARY No qualifying data available. RODNEY DICKENS - 08/23/2019 9:19 EST Interventions Emotional Support : Empathic/Engaged listening, Family/Significant other supported, Feelings expressed Spiritual and Judaism : Prayer shared, Spiritual/Judaism support provided RODNEY DICKENS 08/23/2019 9:19 EST documented in this encounter Plan of Treatment Not on file documented as of this encounter Visit Diagnoses Not on filedocumented in this encounter
--- OUTSIDE RECORDS SUMMARY | 2025-05-07 08:58 | XMS_ITS | Encounter Summary ---
Author Organization [employer] ([place], [place], [place], [place]) Address [address] [place] [address] Care Team Providers Care Head Filter Press Tender Name Role Phone Unavailable Primary Care Provider Unavailabl e Encounter Details Date Type Department Care Team (Late st Contact Info) Description 08/23/2019 Transcribed Document [facility] [place] Family Medicine [facility] [place] [address] ProviderAspen MD [address] [place] [address] Social History Tobacco Use Types [...] - Aspen ProviderMD - 08/23/2019 9:08 AM SUCTION PLATE CARRIER CLEANER [facility] Main OR IntraOp Summary Primary Physician: VIRA OSEGUERA MD-URO Finalized Date/Time: 01/15/20 11:37:55 Pt. Name: BRIELLE SIBLEY Jaya /Sex: 1940 Female Med Rec #: [id number] Physician: VIRA OSEGUERA MD-URO Financial #: [id number] Pt. Type: O Room/Bed: [facility]/1 Admit/Disch: 08/23/19 15:04:00 - 08/25/19 14:06:00 Institution: [facility] IntraOp Case Attendance Entry 1 Entry 2 Entry 3 Case Attendee VIRA OSEGUERA, STORMY RAZA APRN WORLEY, ERLIN CHILEL MD-URO -ANS Role Performed Surgeon/Proceduralist, COMPLIANCE REVIEWER/Nurse Tank Wagon Driver Anesthesiologist of First Record Time In 08/23/19 08:38:00 08/23/19 08:38:00 08/23/19 08:38:00 Time Out 08/23/19 11:37:00 08/23/19 11:37:00 08/23/19 11:37:00 Procedure Sacral Colpopexy Robotic Sacral Colpopexy Robotic Sacral Colpopexy Robotic Other Attendee Superficial Wound Closed By: Last Modified By: Sue Starks, RN Sue Starks, RN Sue Starks, RN 08/23/19 11:40:11 08/23/19 11:40:11 08/23/19 11:40:11 Entry 4 Entry 5 Entry 6 Case Attendee RILEY BENNETT, Chana Lawrence, Hydrator Role Performed Proof Technician, First Scrub, First Scrub, Second Time In 08/23/19 08:38:00 08/23/19 08:38:00 08/23/19 08:38:00 Time Out 08/23/19 11:37:00 08/23/19 11:37:00 08/23/19 11:37:00 Procedure Sacral Colpopexy Robotic Sacral Colpopexy Robotic Sacral Colpopexy Robotic Other Attendee Superficial Wound Closed By: Last Modified By: Sue Starks, RN Sue Starks, RN Sue Starks, QUIQUE 08/23/19 11:40:11 08/23/19 11:40:11 08/23/19 11:40:11 Entry 7 Entry 8 Entry 9 Case Attendee Sue Starks, MENDEL LOVE, Brittni Crenshaw, - SSI Role Performed Cashier Greeter, First Resident Dicer Operator, Ancillary Time In 08/23/19 08:38:00 08/23/19 08:38:00 08/23/19 08:38:00 Time Out 08/23/19 11:37:00 08/23/19 09:42:00 08/23/19 11:37:00 Procedure Sacral Colpopexy Robotic Sacral Colpopexy Robotic Sacral Colpopexy Robotic Other Attendee Superficial Wound Closed By: Last Modified By: Sue Starks, RN Sue Starks, RN Sue Starks, QUIQUE 08/23/19 11:40:11 08/23/19 10:49:54 08/23/19 11:40:11 Entry 10 Case Attendee Yolette Leslie RN Role Performed Cashier Greeter, First Time In 08/23/19 09:53:00 Time Out 08/23/19 10:15:00 Procedure Sacral Colpopexy Robotic Other Attendee Superficial Wound Closed By: Last Modified By: Sue Starks, QUIQUE 08/23/19 10:17:01 [facility] IntraOp Case Attendance Audit 08/23/19 11:40:11 Housekeeper Nanny: SHASHI Modifier: SMITHPD 1 <+> Time Out 1 <*> Procedure Sacral Colpopexy Robotic 2 <+> Time Out 2 <*> Procedure Sacral Colpopexy Robotic 3 <+> Time Out 3 <*> Procedure Sacral Colpopexy Robotic 4 <+> Time Out 4 <*> Procedure Sacral Colpopexy Robotic 5 <+> Time Out 5 <*> Procedure Sacral Colpopexy Robotic 6 <+> Time Out 6 <*> Procedure Sacral Colpopexy Robotic 7 <+> Time Out 7 <*> Procedure Sacral Colpopexy Robotic 8 <*> Procedure Sacral Colpopexy Robotic 9 <+> Time Out 9 <*> Procedure Sacral Colpopexy Robotic 10 <*> Procedure Sacral Colpopexy Robotic 08/23/19 10:49:54 Housekeeper Nanny: SHASHI Modifier: SMITHPD 1 <+> Time In 1 <*> Procedure Sacral Colpopexy Robotic 2 <+> Time In 2 <*> Procedure Sacral Colpopexy Robotic 3 <+> Time In 3 <*> Procedure Sacral Colpopexy Robotic 4 <+> Time In 4 <*> Procedure Sacral Colpopexy Robotic 5 <+> Time In 5 <*> Procedure Sacral Colpopexy Robotic 6 <+> Time In 6 <*> Procedure Sacral Colpopexy Robotic 7 <+> Time In 7 <*> Procedure Sacral Colpopexy Robotic 8 <+> Time In 8 <+> Time Out 8 <*> Procedure Sacral Colpopexy Robotic 9 <+> Time In 9 <*> Procedure Sacral Colpopexy Robotic 10 <*> Procedure Sacral Colpopexy Robotic 08/23/19 10:21:43 Housekeeper Nanny: SHAHSI Modifier: SMITHPD <+> 1 Procedure 2 <*> Procedure Sacral Colpopexy Robotic 3 <*> Procedure Sacral Colpopexy Robotic 4 <*> Procedure Sacral Colpopexy Robotic 5 <*> Procedure Sacral Colpopexy Robotic 6 <*> Procedure Sacral Colpopexy Robotic 7 <*> Procedure Sacral Colpopexy Robotic 8 <*> Procedure Sacral Colpopexy Robotic 9 <*> Procedure Sacral Colpopexy Robotic 10 <*> Procedure Sacral Colpopexy Robotic 08/23/19 10:17:01 Housekeeper Nanny: SHASHI Modifier: SMITHPD <+> 10 Case Attendee <+> 10 Role Performed <+> 10 Time In <+> 10 Time Out <+> 10 Procedure 08/23/19 09:36:27 Housekeeper Nanny: SHASHI Modifier: SMITHPD <+> 8 Case Attendee <+> 8 Role Performed <+> 8 Procedure <+> 9 Case Attendee <+> 9 Role Performed <+> 9 Procedure [facility] IntraOp Case Times Entry 1 Patient In Room Time 08/23/19 08:38:00 Out Room Time 08/23/19 11:37:00 Anesthesia Start Time 08/23/19 08:38:00 Stop Time 08/23/19 11:37:00 Anesthesia Ready 08/23/19 08:38:00 Surgery / Procedure Times Start Time 08/23/19 09:08:00 Stop Time 08/23/19 11:28:00 Last Modified By: Sue Starks RN 08/23/19 10:45:48 [facility] IntraOp Case Times Audit 08/23/19 11:39:09 Housekeeper Nanny: SHASHI Modifier: SMITHPD <+> 1 Out Room Time <+> 1 Stop Time <+> 1 Stop Time [facility] IntraOp Cautery Entry 1 ESU Identification Cautery Type Monopolar ESU ID Number [id number] ID Type Hospital Number Cautery Settings Cut Setting 3 Coag Setting 3 Bipolar Setting 3 ESU Grounding Pad Ground Pad Type Adult Grounding Pad Site Left thigh Grounding Pad Sue Starks RN Applied By Grounding Pad Site Dry, Intact, Warm Skin Condition Before Cautery Grounding Pad Site Unchanged Skin Condition After Cautery Last Modified By: Sue Starks RN 08/23/19 09:45:13 [facility] IntraOp Communication Entry 1 Entry 2 Entry 3 Communication To Family/Significant other Family/Significant other Family/Significant other Comment STARAT UPDATE CLOSING Communication By Sue Starks RN Smith, Patsy D, Sue Benitez RN Date and Time 08/23/19 09:10:00 08/23/19 10:42:00 08/23/19 11:24:00 Last Modified By: Sue Starks RN Smith, Patsy D, RN Smith, Patsy D, RN 08/23/19 08:25:30 08/23/19 10:43:28 08/23/19 11:24:49 [facility] IntraOp Communication Audit 08/23/19 11:24:49 Housekeeper Nanny: SHASHI Modifier: SMITHPD <+> 3 Communication By <+> 3 Date and Time <+> 3 Communication To <+> 3 Comment 08/23/19 10:43:28 Housekeeper Nanny: SHASHI Modifier: SMITHPD 1 <*> Communication By Sue Starks RN 1 <+> Date and Time 1 <*> Communication To Family/Significant other 1 <*> Comment STARAT <+> 2 Communication By <+> 2 Date and Time <+> 2 Communication To <+> 2 Comment [facility] IntraOp Counts Verification Entry 1 Procedure Sacral Colpopexy Robotic Count Info Count Type Sponge, Sharps, Instrument, Miscellaneous Counts Verification Baseline/pre-procedure Sequence Counts Performed By Count Performed By Chana Olivares, (Scrub) Hydrator Count Performed By Sue Starks RN (RN) Last Modified By: Sue Starks RN 08/23/19 09:44:15 [facility] IntraOp Counts Final Entry 1 Procedure Sacral Colpopexy Robotic Final Count Info Count Type Sponge, Sharps, Miscellaneous Counts Verification Skin Closure/end of Sequence procedure Count Results Correct, surgeon notified Counts Performed By Count Performed By Chana Olivares, (Scrub) Hydrator Count Performed By Sue Starks, RN (RN) Last Modified By: Sue Starks RN 08/23/19 09:44:36 [facility] IntraOp Counts Final Audit 08/23/19 11:22:57 Housekeeper Nanny: SHASHI Modifier: SMITHPD 1 <*> Procedure Sacral Colpopexy Robotic 1 <+> Count Performed By (Scrub) 1 <+> Count Performed By (RN) [facility] IntraOp Delays Entry 1 Delay Reason Other Duration 38 Minute(s) Comment WAITING ON DOCTOR TO ARRIVE AND SIGN CONSENTS. DOCTOR DOING UPDATED H&P AND TALKING WITH PATIENT. Last Modified By: Sue Starks RN 08/23/19 09:46:07 [facility] IntraOp Departure from OR Entry 1 Integumentary Assessment Integumentary WDL with patient Assessment WDL specific variances Patient's Normal NEW SURGICAL SITES Integumentary ABDOMEN Variance(s) Transfer/Handoff Transfer to PACU Phase I Handoff Method Phone call Handoff Reported to Girma Neves RN Post-op Transport Stretcher/Gurney Via Patient Transport RILEY BENNETT, Accompanied by STORMY RAZA APRN Last Modified By: Sue Starks RN 08/23/19 11:39:56 [facility] IntraOp Departure from OR Audit 08/23/19 11:39:56 Housekeeper Nanny: SHASHI Modifier: SMITHPD <+> 1 Patient Transport Accompanied by <+> 1 Handoff Reported to [facility] IntraOp Dressing and Packing Entry 1 Type Dressing Location ABDOMEN Wound Dressing Item Skin Closure Glue Wound Packing Type Vaginal packing Applied By RILEY BENNETT Other Comments VAGINAL PACKING BY SANTIAGO CHEN Last Modified By: Sue Starks RN 08/23/19 09:48:02 [facility] IntraOp Fire Risk Assessment Entry 1 Fire Info Surgical Site or 0- No Incision Above the Xyphoid Open O2 Source 0- No (Mask or Cannula) Available Ignition 1- Yes (ESU, Laser, Light Source) Fire Risk 1 Assessment Score Fire Score Fire Risk Yes Assessment Complete Fire Risk Sue Starks starting sheet tank operator Verified By Fire Risk 08/23/19 09:08:00 Assessment Verified Date/Time Fire Risk Standard Fire Yes Safety Precautions Followed Last Modified By: Sue Starks RN 08/23/19 09:49:01 [facility] IntraOp General Case Caterpillar Mechanic 1 Case Information OR OR 13 [facility] Case Level 1 Room Verified Yes Wound Class I - Clean Specialty SN Urology Anesthesia Type General ASA Class 2 Diagnosis Preop Diagnosis PELVIC PROLAPSE Postop Same As Preop No Postop Diagnosis SEE MD POST OPERATIVE NOTE Last Modified By: Sue Starks RN 08/23/19 09:50:51 [facility] IntraOp Implant Log Entry 1 Type Implant (Synthetic) Implant Log Implant Type Mesh Implant MESH Y [id number] Identification Description Implant Quantity 1 Implant Site OP SITE Implant [id number] Identification Lot Number Implant Kedar Identification Sci:Urology/Gynecology Home Health Lvn Name: Implant [id number] Identification Catalog Number Implant Has an Yes Expiration Date Implant Expiration 04/16/22 Date Tissue Implant Tissue Chana Olivares, Prepared/Processed Hydrator By Last Modified By: Sue Starks RN 08/23/19 10:26:29 [facility] IntraOp Intraoperative Assessment Entry 1 Handoff Method Online nursing summary Valid History / Yes Physical in Chart Preoperative Yes Checklist Reviewed/Evaluated Allergies Reviewed Yes Patient is Latex No Sensitive Isolation Not applicable Precautions Noted Level of WDL Consciousness (WDL = Alert, Oriented to Person, Place, and Time) Skin Assessment Yes Verified Present Upon IVs Arrival to OR Last Modified By: Sue Starks RN 08/23/19 09:51:06 [facility] IntraOp Intraoperative Equipment Entry 1 Type Equipment Equipment Equipment Mariya Suction System ID Number [id number] Intraop Monitoring Electrocardiogram Three lead placement (ECG) Electrode Placement Blood Pressure Non-Invasive BP Device Source Blood Pressure Arm, left upper Location Pulse Oximeter Hand, right Probe Site Antiembolic Devices Antiembolic Devices Sequential compression device, knee high Antiembolic Device Bilateral Location Antiembolic Device [id number] ID Number Scopes Photo/Video Documentation Photo No Video No Intraop Equipment SCDS ON AND WORKING Comment PRIOR TO INDUCTION Last Modified By: Sue Starks RN 08/23/19 09:52:33 [facility] IntraOp Medication Admin Entry 1 Entry 2 Entry 3 Medication/Irrigant MARCAINE 0.5% WITH METHYLNE BLUE 10 ML MARYJANE IRR 0.9% NACL EPINEPHRINE 1: 200,000 AMPULE 1000ML-709116 [employer] Med List Time Administered Route of LOCAL IV IRRIGATION Administration Dose Dose 23 10 Unit of Measure ml ml Volume Administered By VIRA OSEGUERA RATLIFF, CASSIE, APRN ADKINS, TIMOTHY D, -URO MD-URO Procedure Irrigation Irrigant Volume In 450 mL Irrigant Volume Out 450 mL Last Modified By: Sue Starks, RN Sue Starks, RN Sue Starks RN 08/23/19 11:22:43 08/23/19 09:54:41 08/23/19 11:22:43 Entry 4 Entry 5 Medication/Irrigant FLSEAL VHSD FULL MARYJANE IRR 0.9% NACL STRLPREP 10ML-725512 1000ML-760008 Combo Med List Time Administered Route of topical SUCTION IRRIGATION Administration Dose Dose 10 Unit of Measure ml Volume Administered By VIRA OSEGUERA CONWAY, CANDY L. MD-URO Procedure Irrigation Irrigant Volume In 100 mL Irrigant Volume Out 100 mL Last Modified By: Sue Starks, RN Sue Starks, RN 08/23/19 11:09:25 08/23/19 11:22:43 [facility] IntraOp Medication Admin Audit 08/23/19 11:22:43 Housekeeper Nanny: SHASHI Modifier: SHASHI 1 <*> Medication/Irrigant MARCAINE 0.5% WITH EPINEPHRINE 1: 200,000 1 <+> Dose <+> 2 Dose <+> 2 Unit of Measure 3 <*> Medication/Irrigant MARYJANE IRR 0.9% NACL 1000ML-577908 3 <*> Route of Administration SUCTION IRRIGATION 3 <*> Administered By RILEY BENNETT 3 <+> Irrigant Volume In 3 <+> Irrigant Volume Out <+> 5 Medication/Irrigant <+> 5 Route of Administration <+> 5 Administered By <+> 5 Irrigant Volume In <+> 5 Irrigant Volume Out 08/23/19 11:09:25 Housekeeper Nanny: SHASHI Modifier: SMITHPD <+> 4 Medication/Irrigant <+> 4 Route of Administration <+> 4 Administered By <+> 4 Dose <+> 4 Unit of Measure 08/23/19 10:39:14 Housekeeper Nanny: SHASHI Modifier: JUICEPD <+> 3 Medication/Irrigant <+> 3 Route of Administration <+> 3 Administered By [facility] Intra[facility] Patient Positioning Entry 1 Procedure Sacral Colpopexy Robotic Body Position Lithotomy Left Arm Position Tucked and padded at side Right Arm Position Tucked and padded at side Left Leg Position Secured in stirrup Right Leg Position Secured in stirrup Feet Uncrossed Yes Pressure Points Yes Checked Positioning Devices Head Rest, Pad, Elbow, Pad (Other), Safety Strap, Thighs, Stirrups/Leg Beltran, Boot Positioning Device positioning led, Comments approved and monitored by anesthesia and surgeon Pad/Roll Location hand padded Positioned By RILEY BENNETT, Sue Starks, RN, STORMY RAZA APRN, ADKINS, TIMOTHY D, MD-URO Position Verified Positioning Yes Verified by Anesthesia Positioning Yes Verified by Surgeon Last Modified By: Sue Starks RN 08/23/19 09:55:05 [facility] IntraOp Sign In Entry 1 Patient, Site, Yes Procedure Identified Surgical Consent Yes Confirmed Relevant Surgical Yes Documents Available Surgical Site N/A Marked by person performing procedure Anesthesia Machine Yes Check Completed Medication Checks Yes Completed Allergies Yes Airway Difficult Yes Airway/Aspiration Risk Difficult Yes Airway/Aspiration Intervention Equipment Available Blood Loss Risk Yes Blood Loss Yes Intervention Equipment Prepared and Ready Blood Identifiers Not applicable Verified Per Policy Hypothermia Risk Yes Warming Measures Yes Taken Last Modified By: Sue Starks RN 08/23/19 10:17:16 [facility] Intra[facility] Sign Out Entry 1 RN Confirmation Surgical Yes Procedure(s) Identified Instrument, Sponge Yes and Sharps Counts Correct/Documented Equipment Problems N/A Documented Specimen Labeled N/A Correctly Urinary Catheter Yes Documented in IView Jacobson Patient Yes Recovery Concerns Reviewed with Anesthesia Provider, Surgeon and RN Jacobson Patient Yes Management Concerns Reviewed with Anesthesia Provider, Surgeon and RN Safety Checklist Yes Elements Complete? RN Sign Out Sue Starks RN Signature RN Sign Out 08/23/19 11:37:00 Signature Date/Time Plan of Care Outcome - Fire Risk OUTCOME STATEMENT: Goal met Patient is free from injury related to surgical fire Plan of Care Outcome - Pt Positioning OUTCOME STATEMENT: Goal met Absence of signs and symptoms of positioning injury. Plan of Care Outcome - Skin Prep OUTCOME STATEMENT: Goal met Intraoperative care is consistent with measures to prevent infection Plan of Care Outcome - Xray/Images OUTCOME STATEMENT: N/A Absence of observable signs or symptoms of radiation injury Plan of Care Outcome - Counts OUTCOME STATEMENT: Goal met Absence of signs and symptoms of injury related to extraneous objects Last Modified By: Sue Starks RN 08/23/19 10:18:19 [facility] Intra[facility] Sign Out Audit 08/23/19 11:40:06 Housekeeper Nanny: SHASHI Modifier: SMITHPD <+> 1 RN Sign Out Signature Date/Time [facility] Intra[facility] Skin Prep Entry 1 Procedure Sacral Colpopexy Robotic Prescribed N/A Pre-Surgical Prep Completed Prep Area abdomen, genatalia Intraop Prep Integumentary WDL Assessment WDL Prep Agents Chloraprep, Betadine scrub, Betadine solution Prep by Sue Starks, RN Skin Prep Comment ABDOMINAL PREP WITH CHLORAPREP DONE BY RILEY BENNETT Hair Removal Methods No hair removal performed Hair Removal Site genitalia Last Modified By: Sue Starks RN 08/23/19 10:21:06 [facility] IntraOp Surgical Procedures Entry 1 Procedure Sacral Colpopexy Robotic Additional (ROBOTIC SACRAL Procedure COLPOPEXY) Description Primary Procedure Yes Primary Surgeon VIRA OSEGUERA MD-URO Start 08/23/19 09:08:00 Stop 08/23/19 11:28:00 Anesthesia Type General Specialty SN Urology Wound Class I - Clean Last Modified By: Sue Starks RN 08/23/19 10:21:42 General Comments: ROCEPHIN 1 G IV ADMIN 0900 PER ANESTHESIA PROVIDER RECORD [facility] IntraOp Surgical Procedures Audit 08/23/19 11:40:08 Housekeeper Nanny: SMITHPD Modifier: SMITHPD <+> 1 Start <+> 1 Stop [facility] Intra[facility] Temp Regulation Devices Entry 1 Temp Regulation Temperature Warm blankets, Forced Regulation Device Air Warming device Temperature Upper body Regulation Site Temperature LUZ MARINA, STORMY, FIRE OBSERVER Regulation Device Applied by Temperature TEMPERATURE REGULATION Regulation Comment MONITORED AND CONTROLLED BY ANESTHESIA PROVIDER Last Modified By: Sue Starks RN 08/23/19 10:22:09 [facility] IntraOP Time Out Entry 1 Procedure to be Sacral Colpopexy Robotic Performed Time Out Time Out Pause Time 08/23/19 09:08:00 All activity Yes suspended (unless life threatening emergency) Team Verbally Correct patient Confirms Information identity, Consent form is present and accurate, Agreement on the procedure to be done, Correct patient position, Relevant images/results properly labeled/appropriately displayed, Confirm antibiotics have been administered, Confirm the skin prep has dried, Confirm prosthesis/implant/devic e is present, Performed in location of procedure after prepped/draped Time Out Comment PT STATED BETA MAMIE TAKEN NORMALLY SCHEDULED Antibiotic Yes Prophylaxis Administered Or In Progress Within the Last 60 Minutes Beta Mamie Yes Administered Venous Yes Thromboembolism Prophylaxis Required Anticipated Critical Events Surgeon None expected Anesthesia Provider None expected Nursing Assures Sterility of instruments, Implant Availability Essential Imaging Yes Labeled and Displayed Last Modified By: Sue Starks RN 08/23/19 09:43:41 Case Comments <None> Finalized By: JULIANNE CASTAÑEDA Document Signatures Signed By: Sue Starks RN 08/23/19 11:40 JULIANNE CASTAÑEDA 08/24/19 10:28 JULIANNE CASTAÑEDA 01/15/20 11:37 Unfinalized History Date/Time Username Reason for Unfinalizing Freetext Reason for Unfinalizing 08/24/19 10:26 WATTSDR Correct Billing 01/15/20 11:37 WATTSDR Correct Billing documented in this encounter Plan of Treatment Not on file documented as of this encounter Visit Diagnoses Not on filedocumented in this encounter
--- OUTSIDE RECORDS SUMMARY | 2025-05-07 08:58 | XMS_ITS | Encounter Summary ---
Author Organization [employer] ([place], [place], [place], [place]) Address [address] [place] [address] Care Team Providers Care Home Extension Agent Name Role Phone Unavailable Primary Care Provider Unavailabl e Encounter Details Date Type Department Care Team (Late st Contact Info) Description 08/24/2019 Transcribed Document [facility] [place] Medicine [address] [place] [address] ProviderAspen MD [address] [place] [address] Social History Tobacco Use Types [...] [employer] Conversion Note - Historical ProviderMD - 08/24/2019 5:00 AM ANESTHESIA ASSOCIATE Chart Check - Review Order Profile Entered On: 08/25/2019 5:40 EST Performed On: 08/24/2019 5:00 EST by Mikki Ferraro, RN Chart Check Powerplans Initiated/Discontinued as Appropriate : Yes All Active Orders Reviewed : Yes Mikki Ferraro RN - 08/25/2019 5:40 EST documented in this encounter Plan of Treatment Not on file documented as of this encounter Visit Diagnoses Not on filedocumented in this encounter
--- OUTSIDE RECORDS SUMMARY | 2025-05-07 08:58 | XMS_ITS | Encounter Summary ---
Author Organization [employer] ([place], [place], [place], [place]) Address [address] [place] [address] Care Team Providers Care Drier Operator Name Role Phone Unavailable Primary Care Provider Unavailabl e Encounter Details Date Type Department Care Team (Late st Contact Info) Description 08/24/2019 Transcribed Document [facility] [place] [address] [place] [address] ProviderAspen MD [address] [place] [address] Social History Tobacco Use Types [...] Conversion Note - Historical ProviderMD - 08/24/2019 2:19 PM VEHICLE REFINISHER UM Authorization Entered On: 08/24/2019 14:19 EST Performed On: 08/24/2019 14:19 EST by DAI MONTES DE OCA RN Primary Insurance Authorization Authorization and Policy Numbers : Insurance 1 Health Plan: [employer] P[employer] Policy Number: [id number] Authorization Number: Insurance Primary Name : [employer] P[employer] Policy Number: [id number] Historical Authorization Comments-Primary : No Authorization Comments Found DAI MONTES DE OCA RN - 08/24/2019 14:19 EST Electronically signed by [facility] Conversion Investigation Specialist Cerner at 11/01/2022 7:15 PM CDT documented in this encounter Plan of Treatment Not on file documented as of this encounter Visit Diagnoses Not on filedocumented in this encounter
--- OUTSIDE RECORDS SUMMARY | 2025-05-07 08:58 | XMS_ITS | Encounter Summary ---
Author Organization [employer] ([place], [place], [place], [place]) Address [address] [place] [address] Care Team Providers Care Rn Psych Name Role Phone Unavailable Primary Care Provider Unavailabl e Encounter Details Date Type Department Care Team (Late st Contact Info) Description 08/23/2019 Transcribed Document [facility] [place] Family Medicine [facility] [place] [address] ProviderAspen MD [address] [place] [address] Social History Tobacco Use Types [...] Conversion Note - Aspen ProviderMD - 08/23/2019 9:38 AM EMBEDDED SYSTEMS ENGINEER Pain Assessment Entered On: 08/23/2019 15:33 EST Performed On: 08/23/2019 12:24 EST by Girma Neves RN Intervention Information: HYDROmorphone Performed by Girma Neves RN on 08/23/2019 11:54:00 EST HYDROmorphone,0.5mg IV Push,Left Antecubital Brooks,Pain (Severe 7-10)(c) Pain Assessment Pain Assessment : Follow-up assessment Pain Scale Goal : 5 Pain Location Comment : pt asleep Girma Neves RN - 08/23/2019 15:32 EST documented in this encounter Plan of Treatment Not on file documented as of this encounter Visit Diagnoses Not on filedocumented in this encounter
--- OUTSIDE RECORDS SUMMARY | 2025-05-07 08:59 | XMS_ITS | Encounter Summary ---
Author Organization [employer] ([place], [place], [place], [place]) Address [address] [place] [address] Care Team Providers Care Personnel Representative Name Role Phone Unavailable Primary Care Provider Unavailabl e Encounter Details Date Type Department Care Team (Late st Contact Info) Description 08/25/2019 Transcribed Document [facility] [place] Family Medicine [place] [address] ProviderAspen MD [address] [place] [address] Social History Tobacco Use Types Packs/Day Years Used Date Smoking Tobacco: Never Assessed Comments Unknown Sex and Gender Information Value Date Recorded Sex Assigned at Female 01/12/2022 8:37 PM CDT Legal Sex Female 8:37 PM CDT Gender Identity Female 01/12/2022 8:37 PM CDT Sexual Orientation Not on file documented as of this encounter Miscellaneous Notes * Cerner Conversion Note - Aspen Blanc MD - 08/25/2019 12:31 PM DROP FORGE HAND Patient Education Materials Follows: Sacrocolpopexy, Care After This sheet gives you information about how to care for yourself after your procedure. Your health care provider may also give you more specific instructions. If you have problems or questions, contact your health care provider. What can I expect after the procedure? After the procedure, it is common to have: ??? Pain. ??? Some vaginal bleeding. ??? Tiredness (fatigue). Follow these instructions at home: Medicines ??? Take obru-jpf-dqguofl and prescription medicines only as told by your health care provider. ??? If you were prescribed an antibiotic medicine, take it as told by your health care provider. Do not stop taking the antibiotic even if you start to feel better. ??? Do not drive or use heavy machinery while taking prescription pain medicine. Incision care ??? Follow instructions from your health care provider about how to take care of your incisions. Make sure you: ? Wash your hands with soap and water before you change your bandage (dressing). If soap and water are not available, use hand line ordering clinician. ? Change your dressing as told by your health care provider. ? Leave stitches (sutures), skin glue, or adhesive strips in place. These skin closures may need to stay in place for 2 weeks or longer. If adhesive strip edges start to loosen and curl up, you may trim the loose edges. Do not remove adhesive strips completely unless your health care provider tells you to do that. ??? Check your incision areas every day for signs of infection. Check for: ? Redness, swelling, or pain. ? Fluid or blood. ? Warmth. ? Pus or a bad smell. ??? Do not take baths, swim, or use a hot tub until your health care provider says it is okay to do so. Do not shower for 24 hours or until after your bandages have been removed. Activity ??? Take frequent, short walks throughout the day. Rest when you get tired. ??? Limit your activities as told by your health care provider. For at least 6 weeks: ? Do not lift anything that is heavier than 10 lb (4.5 kg), or the limit that your health care provider tells you, until he or she says that it is safe. ? Do not sit on a bike seat. ? Do not use a tampon or put anything inside your vagina. ? Do not have sexual intercourse. ? Do not participate in activities that take a lot of effort (strenuous), such as running or aerobics. ??? Ask your health care provider when you can return to work and do all your usual activities. It may take 3 months to recover completely. General instructions ??? To prevent or treat constipation while you are taking prescription pain medicine, your health care provider may recommend that you: ? Drink enough fluid to keep your urine pale yellow. ? Take cxuz-fsw-jwbraqb or prescription medicines. ? Eat foods that are high in fiber, such as fresh fruits and vegetables, whole grains, and beans. ? Limit foods that are high in fat and processed sugars, such as fried and sweet foods. ??? Keep all follow-up visits as told by your health care provider. This is important. Contact a health care provider if: ??? You have chills or a fever. ??? Your pain medicine is not helping. ??? You have vaginal bleeding or discharge that will not go away. ??? You have any signs of infection, such as: ? Redness, swelling, or pain around your incision. ? Fluid or blood coming from your incision. ? Your incision feeling warm to the touch. ? Pus or a bad smell coming from your incision. Get help right away if: ??? You have a fever for more than 2?3 days. ??? You have very bad pain. ??? You have heavy vaginal bleeding or discharge. ??? You have a foul smell coming from your vagina area. ??? You develop a warm, tender area in your leg. ??? You have chest pain or trouble breathing. Summary ??? After the procedure, it is common to have some vaginal bleeding. ??? Limit your activities as told by your health care provider. For at least 6 weeks, do not lift anything heavy, have sexual intercourse, use tampons, sit on a bike seat, or participate in strenuous activities. ??? Follow instructions from your health care provider about how to take care of your incisions. Check your incision areas every day for signs of infection. ??? To prevent blood clots, take frequent, short walks throughout the day. Rest when you get tired. This information is not intended to replace advice given to you by your health care provider. Make sure you discuss any questions you have with your health care provider. Document Released: 07/09/2014 Document Revised: 09/29/2017 Document Reviewed: 09/29/2017 [employer] Patient Education ? 2019 [employer] Sacrocolpopexy Sacrocolpopexy is a surgical procedure that is done to return the top part of the vagina (vaginal vault) to its normal position inside the pelvis. This procedure is done when the vaginal vault falls down into the lower vagina (vaginal prolapse). It repairs the condition and relieves its symptoms, which may include bowel or bladder problems, backache, or dragging, aching feeling. You may need this procedure if your pelvic muscles have become weak after childbirth, or if you have had surgery to remove your uterus (hysterectomy). During the procedure, a surgeon may use a surgical mesh to lift and support your vagina. Tell a health care provider about: ??? Any allergies you have. ??? All medicines you are taking, including vitamins, herbs, eye drops, creams, and ijcf-mox-hfldsfq medicines. ??? Any problems you or family members have had with anesthetic medicines. ??? Any blood disorders you have. ??? Any surgeries you have had. ??? Any medical conditions you have. ??? Whether you are or may be . What are the risks? Generally, this is a safe procedure. However, problems may occur, including: ??? The prolapse happening again after surgery. This is the most common problem. ??? Bleeding. ??? Pain. ??? Pain or reduced sensation during sexual intercourse. ??? Infection. ??? Loss of urinary or bowel control. ??? Movement or loss of the surgical mesh. ??? Formation of a blood clot in the leg. ??? Having a blood clot travel to the lungs. Be sure to talk with your health care provider about the risks of this procedure and the options available to you for the management of your problem. What happens before the procedure? Staying hydrated Follow instructions from your health care provider about hydration, which may include: ??? Up to 2 hours before the procedure ? you may continue to drink clear liquids, such as water, clear fruit juice, black coffee, and plain tea. Eating and drinking restrictions Follow instructions from your health care provider about eating and drinking, which may include: ??? 8 hours before the procedure ? stop eating heavy meals or foods such as meat, fried foods, or fatty foods. ??? 6 hours before the procedure ? stop eating light meals or foods, such as toast or cereal. ??? 6 hours before the procedure ? stop drinking milk or drinks that contain milk. ??? 2 hours before the procedure ? stop drinking clear liquids. General instructions ??? Ask your health care provider about: ? Changing or stopping your regular medicines. This is especially important if you are taking diabetes medicines or blood thinners. ? Taking wkyn-dsm-jkljfwt medicines, vitamins, herbs, and supplements. ? Taking medicines such as aspirin and ibuprofen. These medicines can thin your blood. Do not take these medicines unless your health care provider tells you to take them. ??? You may need to use a certain diet and medicines to clean out your digestive system (bowel prep): ? Follow your health care provider's instructions. Bowel prep is done to make sure your bowel is empty for the procedure. It can also prevent constipation. ? You may need to start your bowel prep a few days before the procedure. ??? You may be required to use a vaginal cream to strengthen your vaginal tissues. Use it as told by your health care provider. ??? Plan to have someone take you home from the hospital or clinic. What happens during the procedure? To reduce your risk of infection: ? Your health care team will wash or sanitize their hands. ? Hair may be removed from the surgical area. ? Your skin will be washed with soap. ??? An IV will be inserted into one of your veins. ??? You will be given one or more of the following: ? A medicine to help you relax (sedative). ? A medicine to make you fall asleep (general anesthetic). ? A?medicine that is injected into your spine to numb the area below and slightly above the injection site (spinal anesthetic). ? An antibiotic medicine to prevent infection. ??? A tube (catheter) will be inserted to drain your bladder. ??? Your surgeon will perform the surgery using one of the following methods: ? Open surgery. The surgery will be done through a small incision made in the skin on your lower abdomen. ? Laparoscopic surgery. The surgery will be done through several tiny incisions, using long instruments and a telescopic camera. In some cases, laparoscopic surgery will be done by remote control (robotic surgery). ??? Your surgeon will make one or more incisions and then separate your vagina from your bowel and your bladder. ??? Your surgeon will push up the vaginal prolapse from below and attach a surgical mesh to your vagina. ??? The mesh will be used to lift your vaginal vault. It will be attached to a part of your tailbone with stitches (sutures) or carla. ??? Your surgeon will close the incisions with stitches or carla. The procedure may vary among health care providers and hospitals. What happens after the procedure? Your blood pressure, heart rate, breathing rate, and blood oxygen level will be monitored until the medicines you were given have worn off. ??? You may have a bandage in your vagina for a few days. ??? You will be encouraged to walk when you can get out of bed. Walking helps prevent blood clots. ??? You will get fluids and nutrition through an IV until you can start eating on your own. ??? You will be given pain medicine as needed. You may also be given antibiotics to prevent infection and a medicine to prevent blood clots. ??? You may have your catheter removed soon after your surgery. Summary ??? Sacrocolpopexy is a surgical procedure that is done to repair vaginal prolapse, a condition in which the top part of the vagina (vaginal vault) has fallen down into the lower vagina. ??? The surgery will relieve symptoms such as bowel or bladder problems, backache, or dragging, aching feeling. ??? During the procedure, a surgeon may use a surgical mesh to lift and support your vagina. ??? Follow instructions from your health care provider about eating and drinking before the procedure. This information is not intended to replace advice given to you by your health care provider. Make sure you discuss any questions you have with your health care provider. Document Released: 07/09/2014 Document Revised: 09/29/2017 Document Reviewed: 09/29/2017 [employer] Patient Education ? 2019 [employer] Sacrocolpopexy, Care After This sheet gives you information about how to care for yourself after your procedure. Your health care provider may also give you more specific instructions. If you have problems or questions, contact your health care provider. What can I expect after the procedure? After the procedure, it is common to have: ??? Pain. ??? Some vaginal bleeding. ??? Tiredness (fatigue). Follow these instructions at home: Medicines ??? Take eygb-olw-nbkbjvq and prescription medicines only as told by your health care provider. ??? If you were prescribed an antibiotic medicine, take it as told by your health care provider. Do not stop taking the antibiotic even if you start to feel better. ??? Do not drive or use heavy machinery while taking prescription pain medicine. Incision care ??? Follow instructions from your health care provider about how to take care of your incisions. Make sure you: ? Wash your hands with soap and water before you change your bandage (dressing). If soap and water are not available, use hand line ordering clinician. ? Change your dressing as told by your health care provider. ? Leave stitches (sutures), skin glue, or adhesive strips in place. These skin closures may need to stay in place for 2 weeks or longer. If adhesive strip edges start to loosen and curl up, you may trim the loose edges. Do not remove adhesive strips completely unless your health care provider tells you to do that. ??? Check your incision areas every day for signs of infection. Check for: ? Redness, swelling, or pain. ? Fluid or blood. ? Warmth. ? Pus or a bad smell. ??? Do not take baths, swim, or use a hot tub until your health care provider says it is okay to do so. Do not shower for 24 hours or until after your bandages have been removed. Activity ??? Take frequent, short walks throughout the day. Rest when you get tired. ??? Limit your activities as told by your health care provider. For at least 6 weeks: ? Do not lift anything that is heavier than 10 lb (4.5 kg), or the limit that your health care provider tells you, until he or she says that it is safe. ? Do not sit on a bike seat. ? Do not use a tampon or put anything inside your vagina. ? Do not have sexual intercourse. ? Do not participate in activities that take a lot of effort (strenuous), such as running or aerobics. ??? Ask your health care provider when you can return to work and do all your usual activities. It may take 3 months to recover completely. General instructions ??? To prevent or treat constipation while you are taking prescription pain medicine, your health care provider may recommend that you: ? Drink enough fluid to keep your urine pale yellow. ? Take pucn-nvi-umzhjgy or prescription medicines. ? Eat foods that are high in fiber, such as fresh fruits and vegetables, whole grains, and beans. ? Limit foods that are high in fat and processed sugars, such as fried and sweet foods. ??? Keep all follow-up visits as told by your health care provider. This is important. Contact a health care provider if: ??? You have chills or a fever. ??? Your pain medicine is not helping. ??? You have vaginal bleeding or discharge that will not go away. ??? You have any signs of infection, such as: ? Redness, swelling, or pain around your incision. ? Fluid or blood coming from your incision. ? Your incision feeling warm to the touch. ? Pus or a bad smell coming from your incision. Get help right away if: ??? You have a fever for more than 2?3 days. ??? You have very bad pain. ??? You have heavy vaginal bleeding or discharge. ??? You have a foul smell coming from your vagina area. ??? You develop a warm, tender area in your leg. ??? You have chest pain or trouble breathing. Summary ??? After the procedure, it is common to have some vaginal bleeding. ??? Limit your activities as told by your health care provider. For at least 6 weeks, do not lift anything heavy, have sexual intercourse, use tampons, sit on a bike seat, or participate in strenuous activities. ??? Follow instructions from your health care provider about how to take care of your incisions. Check your incision areas every day for signs of infection. ??? To prevent blood clots, take frequent, short walks throughout the day. Rest when you get tired. This information is not intended to replace advice given to you by your health care provider. Make sure you discuss any questions you have with your health care provider. Document Released: 07/09/2014 Document Revised: 09/29/2017 Document Reviewed: 09/29/2017 [employer] Patient Education ? 2019 [employer] documented in this encounter Plan of Treatment Not on file documented as of this encounter Visit Diagnoses Not on filedocumented in this encounter
--- OUTSIDE RECORDS SUMMARY | 2025-05-07 08:59 | XMS_ITS | Encounter Summary ---
Author Organization [employer] ([place], [place], [place], [place]) Address [address] [place] [address] Care Team Providers Care Lease Out Worker Name Role Phone Unavailable Primary Care Provider Unavailabl e Encounter Details Date Type Department Care Team (Late st Contact Info) Description 08/25/2019 Transcribed Document [facility] [place] Family Medicine [address] [place] [address] ProviderAspen MD [address] [place] [address] Social History Tobacco Use Types [...] Cerner Conversion Note - Historical ProviderMD - 08/25/2019 12:32 PM TANKER SERVICEMAN Stroke/Warfarin Instructions Entered On: 08/25/2019 12:32 EST Performed On: 08/25/2019 12:32 EST by Adele Moody RN Stroke/Warfarin Instructions Stroke/TIA Discharge Ins : N/A Warfarin Discharge Ins : N/A Adele Moody RN - 08/25/2019 12:32 EST Electronically signed by Kanwal Flores Conversion Certified Professional Coder Andreas at 11/01/2022 7:14 PM CDT documented in this encounter Plan of Treatment Not on file documented as of this encounter Visit Diagnoses Not on filedocumented in this encounter
--- OUTSIDE RECORDS SUMMARY | 2025-05-07 08:59 | XMS_ITS | Encounter Summary ---
Author Organization [employer] ([place], [place], [place], [place]) Address [address] [place] [address] Care Team Providers Care Ramp Service Employee Name Role Phone Unavailable Primary Care Provider Unavailabl e Encounter Details Date Type Department Care Team (Late st Contact Info) Description 08/25/2019 Transcribed Document [facility] [place] [address] [place] [address] ProviderAspen MD [address] [place] [address] Social History Tobacco Use Types [...] Conversion Note - Historical ProviderMD - 08/25/2019 5:00 AM OIL MIXER Chart Check - Review Order Profile Entered On: 08/25/2019 5:41 EST Performed On: 08/25/2019 5:00 EST by Mikki Ferraro, RN Chart Check [employer] Initiated/Discontinued as Appropriate : Yes All Active Orders Reviewed : Yes Mikki Ferraro RN - 08/25/2019 5:41 EST documented in this encounter Plan of Treatment Not on file documented as of this encounter Visit Diagnoses Not on filedocumented in this encounter
--- OUTSIDE RECORDS SUMMARY | 2025-05-07 08:59 | XMS_ITS | Referral Summary ---
Author Organization [employer] ([place], [place], [place], [place]) Address [address] [place] [address] Care Team Providers Care Restuarant Crew Worker Name Role Phone Unavailable Primary Care Provider Unavailabl e Social History Tobacco Use Types Packs/Day Years Used Date Smoking Tobacco: Never Assessed Comments Unknown Sex and Gender Information Value Date Recorded Sex Assigned at Female 01/12/2022 8:37 PM CDT Legal Sex Female 8:37 PM CDT Gender Identity Female 01/12/2022 8:37 PM CDT Sexual Orientation Not on file Plan of Treatment Not on file
--- OUTSIDE RECORDS SUMMARY | 2025-05-07 08:59 | XMS_ITS | Encounter Summary ---
Author Organization [employer] ([place], [place], [place], [place]) Address [address] [place] [address] Care Team Providers Care Etl Manager Name Role Phone Unavailable Primary Care Provider Unavailabl e Encounter Details Date Type Department Care Team (Late st Contact Info) Description 08/24/2019 Transcribed Document [facility] [place] Family Medicine [address] [place] [address] ProviderAspen MD [address] [place] [address] Social History Tobacco Use Types [...] Conversion Note - Aspen ProviderMD - 08/24/2019 3:10 PM SERVICE SPRINKLER HELPER UM Authorization Entered On: 08/24/2019 15:14 EST Performed On: 08/24/2019 15:10 EST by DAI MONTES DE OCA RN Primary Insurance Authorization Authorization and Policy Numbers : Insurance 1 Health Plan: [employer] Policy Number: [id number] Authorization Number: Insurance Primary Name : [employer] Policy Number: [id number] Authorization Status-Primary : Submitted Authorized Service Begin Date-Primary : 08/23/2019 EST Authorization Comments-Primary : Per availity gennerated message no prior auth necessary em to JJ Historical Authorization Comments-Primary : Comment 1: CPT code 51252, will page for status order, em to pa to change the status (DAI MONTES DE OCA RN 08/24/2019 15:07) DAI MONTES DE OCA RN - 08/24/2019 15:10 EST Electronically signed by Mark, [facility] Conversion Lean Engineer Cerner at 11/01/2022 7:30 PM CDT documented in this encounter Plan of Treatment Not on file documented as of this encounter Visit Diagnoses Not on filedocumented in this encounter
--- OUTSIDE RECORDS SUMMARY | 2025-05-07 08:59 | XMS_ITS | Encounter Summary ---
Author Organization [employer] ([place], [place], [place], [place]) Address [address] [place] [address] Care Team Providers Care Support Specialist Name Role Phone Unavailable Primary Care Provider Unavailabl e Encounter Details Date Type Department Care Team (Late st Contact Info) Description 08/23/2019 Transcribed Document [facility] [place] Family Medicine [facility] [address] ProviderAspen MD [address] [place] [address] Social History Tobacco Use Types [...] Conversion Note - Aspen Blanc MD - 08/23/2019 9:08 AM GRADES 1 THROUGH 5 TEACHER [facility] Main OR PACU Summary Primary Physician: VIRA OSEGUERA MD-URO Finalized Date/Time: 08/23/19 16:04:53 Pt. Name: TOÑITOLITZY V /Sex: 1940 Female Med Rec #: [id number] Physician: VIRA OSEGUERA MD-URO Financial #: [id number] Pt. Type: O Room/Bed: [facility]/1 Admit/Disch: 08/23/19 06:44:00 - Institution: [facility] Main OR PACU I Case Times Entry 1 In PACU I 08/23/19 11:39:00 Ready for PACU 08/23/19 12:25:00 Discharge Discharge from PACU 08/23/19 15:51:00 I Last Modified By: Girma Neves RN 08/23/19 16:04:31 Finalized By: Girma Neves RN Document Signatures Signed By: Girma Neves RN 08/23/19 16:04 documented in this encounter Plan of Treatment Not on file documented as of this encounter Visit Diagnoses Not on filedocumented in this encounter
--- OUTSIDE RECORDS SUMMARY | 2025-05-07 08:59 | XMS_ITS | Encounter Summary ---
Author Organization [employer] ([place], [place], [place], [place]) Address [address] [place] [address] Care Team Providers Care Wood Calker Name Role Phone Unavailable Primary Care Provider Unavailabl e Encounter Details Date Type Department Care Team (Late st Contact Info) Description 08/23/2019 Transcribed Document [facility] [place] [facility] [place] [address] ProviderAspen MD [address] [place] [id number] Social History Tobacco Use Types Packs/Day [...] Note - Aspen Blanc MD - 08/23/2019 11:40 AM SAMPLE STITCHER DATE OF PROCEDURE: 08/23/2019 SURGEON: Beto Garza MD PREOPERATIVE DIAGNOSIS: Pelvic prolapse. POSTOPERATIVE DIAGNOSIS: Pelvic prolapse. PROCEDURES PERFORMED: Robotic-assisted laparoscopic sacrocolpopexy and cystoscopy. ANESTHESIA: General. ELECTRICIAN MARINE: VERN Diaz DRAINS: Urethral Ochoa catheter. COMPLICATIONS: None. BRIEF HISTORY: The patient is a 79-year-old female with history of hysterectomy years ago. She has had symptomatic progressive pelvic prolapse with mostly cystocele, but moderate enterocele as well. She presents today for treatment. We have decided to discuss the robotic, laparoscopic sacral suspension. Risks were discussed including recurrence. We discussed risks of bleeding, infection, as well as intraabdominal injury of associated organs. We also discussed the possibility of issues with surgical mesh. All this has been discussed in detail and benefits seem to significantly outweigh any risks, and she presents today for intervention. DESCRIPTION OF PROCEDURE: Sequential compression garments were placed and functioned at the time of induction. General anesthesia was administered. She was placed in lithotomy position. Abdomen and genital areas were prepped and draped in standard fashion. Ochoa catheter was inserted. Pneumoperitoneum was established using the Veress technique through a small incision in the umbilicus. This was unremarkable. A trocar was placed at that level under visualization. There were no significant intraabdominal adhesions hindering our exposure. Lateral ports were placed in a standard manner, two 8 mm ports on the left side, one on the right, and then a 12 mm port on extreme right. She was placed in a steep reverse Trendelenburg position. The robot was docked. The small bowel was brought up out of the pelvis for exposure. The sacral promontory was visualized and located. The posterior peritoneum was carefully incised from that point down to the just below the apex of the vagina, which was elevated using a vaginal spatula. This was then incised transversely at its apex, the peritoneum over the apex of the vagina developed. A nice plane was fairly easily developed between the bladder and the anterior vaginal wall, and this was mobilized to allow for a nice plane for placement of the anterior limb of the graft. The posterior was cleaned off as well. The wire graft was then positioned and 6 sutures were placed anteriorly to midline level and two on each lateral line. The graft was then flipped anteriorly, and 2 rows of three sutures were placed there, getting nice purchase. The limbs of the graft were then trimmed to relieve any extra material. The apex of the vagina was then elevated. The long arm of the graft was then sutured x3 to the sacral promontory ligament with nice purchase. The peritoneum was then closed and reapproximated over the graft, isolated from the abdominal cavity. This looked aesthetically pleasing. Prior to closing this, over the bladder and lateral aspect of the vagina, FloSeal was placed. The robot was undocked. Cystoscopy was then performed. Methylene blue had been administered intravenously several minutes earlier. There were no evidence of stitches within the bladder. There was a nice jet seen from each ureteral orifice. All looked aesthetically pleasing and her prolapse was well reduced. The cystoscope was withdrawn. The Ochoa catheter was reinserted. The trocars were all removed. The skin edges were approximated with 3-0 Vicryl and Dermabond. The patient tolerated the procedure well and was transferred to postoperative area in stable condition. /[id number] Beto Garza MD TDA/AQ / TDA / MODL /[id number] CC: Dr. Eugenio Garza MD documented in this encounter Plan of Treatment Not on file documented as of this encounter Visit Diagnoses Not on filedocumented in this encounter
--- OUTSIDE RECORDS SUMMARY | 2025-05-07 08:59 | XMS_ITS | Clinical Summary ---
Author Organization [employer] ([place], [place], [place], [place]) Address [address] [place] [address] Care Team Providers Care Talent Acquisition Consultant Name Role Phone Unavailable Primary Care Provider [...]
--- OUTSIDE RECORDS SUMMARY | 2025-05-07 08:59 | XMS_ITS | Encounter Summary ---
Author Organization [employer] ([place], [place], [place], [place]) Address [address] [place] [address] Care Team Providers Care Event Planner Name Role Phone Unavailable Primary Care Provider Unavailabl e Encounter Details Date Type Department Care Team (Late st Contact Info) Description 08/25/2019 Transcribed Document [facility] [place] Medicine [address] [place] [address] ProviderAspen MD [address] [place] [address] Social History Tobacco Use Types [...] Conversion Note - Historical ProviderMD - 08/25/2019 12:30 PM BODY SHOP TECHNICIAN Nursing Discharge Summary Entered On: 08/25/2019 12:31 EST Performed On: 08/25/2019 12:30 EST by Adele Moody RN Discharge Documentation Patient Disposition, General : Discharge Discharge To : Home with ambulatory/outpatient follow-up Mode Of Departure, General Discharge : Private vehicle Accompanied By, Discharge : Spouse IV Discontinued : Yes Personal Belongings With Patient : Yes Discharge Instructions Reviewed With, Opportunity For Questions Given : Patient, Spouse Patient Education Completed : Yes Teaching Method : Explanation, Printed materials Teaching Evaluation : Verbalizes understanding Adele Moody RN - 08/25/2019 12:30 EST Electronically signed by Mark [facility] Conversion Insurance Underwriter Cerner at 11/01/2022 7:12 PM CDT documented in this encounter Plan of Treatment Not on file documented as of this encounter Visit Diagnoses Not on filedocumented in this encounter
--- OUTSIDE RECORDS SUMMARY | 2025-05-07 08:59 | XMS_ITS | Encounter Summary ---
Author Organization [employer] ([place], [place], [place], [place]) Address [address] [place] [address] Care Team Providers Care Staffing Coordinator Name Role Phone Unavailable Primary Care Provider Unavailabl e Encounter Details Date Type Department Care Team (Late st Contact Info) Description 08/24/2019 Transcribed Document [facility] [place] [address] [place] [address] ProviderAspen MD [address] [place] [address] Social History Tobacco Use Types [...] Conversion Note - Historical ProviderMD - 08/24/2019 2:00 AM APPEALS AND GENERALIST CLERK Zinc Skimmer Details Entered On: 08/25/2019 5:40 EST Performed On: 08/24/2019 2:00 EST by Mikki Ferraro RN Order Details Isolation Precautions Order Detail : Standard Precautions Order Detail : N/A IV Order Detail : 1 Oxygen Order Detail : 0 Nurse Collect Order Detail : 0 Central Line Order Detail : No Room Service : Appropriate Arterial Line : No Mikki Ferraro RN - 08/25/2019 5:39 EST documented in this encounter Plan of Treatment Not on file documented as of this encounter Visit Diagnoses Not on filedocumented in this encounter
--- OUTSIDE RECORDS SUMMARY | 2025-05-07 08:59 | XMS_ITS | Encounter Summary ---
Author Organization [employer] ([place], [place], [place], [place]) Address [address] [place] [address] Care Team Providers Care Plastic Sheets Supervisor Name Role Phone Unavailable Primary Care Provider Unavailabl e Encounter Details Date Type Department Care Team (Late st Contact Info) Description 08/24/2019 Transcribed Document [facility] [place] [address] [place] [address] ProviderAspen MD [address] [place] [address] Social History Tobacco Use Types [...] Conversion Note - Aspen Blanc MD - 08/24/2019 3:07 PM OPTION TRADER UM Authorization Entered On: 08/24/2019 15:07 EST Performed On: 08/24/2019 15:07 EST by DAI MONTES DE OCA RN Primary Insurance Authorization Authorization and Policy Numbers : Insurance 1 Health Plan: [employer] P[employer] Policy Number: [id number] Authorization Number: Insurance Primary Name : [employer] Policy Number: [id number] Authorization Comments-Primary : CPT code 91353, will page for status order, em to pa to change the status Historical Authorization Comments-Primary : No Authorization Comments Found DAI MONTES DE OCA RN - 08/24/2019 15:07 EST Electronically signed by Mark [facility] Conversion Accounts Receivable Accountant Cerner at 11/01/2022 7:35 PM CDT documented in this encounter Plan of Treatment Not on file documented as of this encounter Visit Diagnoses Not on filedocumented in this encounter
--- OUTSIDE RECORDS SUMMARY | 2025-05-07 08:59 | XMS_ITS | Encounter Summary ---
Author Organization [employer] ([place], [place], [place], [place]) Address [address] [place] [address] Care Team Providers Care Crew Person Name Role Phone Unavailable Primary Care Provider Unavailabl e Encounter Details Date Type Department Care Team (Late st Contact Info) Description 08/25/2019 Transcribed Document [facility] [place] [address] [place] [address] ProviderAspen MD [address] [place] [address] Social History Tobacco Use Types [...] Conversion Note - Historical ProviderMD - 08/25/2019 2:00 AM SWIMMING INSTRUCTOR Overcoiler Details Entered On: 08/25/2019 5:41 EST Performed On: 08/25/2019 2:00 EST by Mikki Ferraro RN Order Details Isolation Precautions Order Detail : Standard Precautions Order Detail : N/A IV Order Detail : 1 Oxygen Order Detail : 0 Nurse Collect Order Detail : 0 Central Line Order Detail : No Room Service : Appropriate Arterial Line : No Mikki Ferraro RN - 08/25/2019 5:41 EST documented in this encounter Plan of Treatment Not on file documented as of this encounter Visit Diagnoses Not on filedocumented in this encounter
== END 2025-05-07 23:59 | disposition home or self-care (01) ==
LOC: RAD 08:42
PROVIDERS: PCP Family Medicine; Visit Provider Nurse Practitioner Family
DX: M85.88 Other specified disorders of bone density and structure, other site (principal)
CPT/HCPCS: 77080